=== PATIENT | female | born 1995 | race Caucasian/White ===

== ENCOUNTER 2021-09-18 22:47 | Emergency (ER) | payer MEDICAID, SELFPAY ==
[2021-09-18 22:48] VITALS: BP 147/86; PULSE 100; RESP 18; TEMP 36.4; O2SAT 94; BMI 31.4
[2021-09-18] MEDS: Clindamycin HCl 150 MG Capsule 300 MG PO (23:16)
[2021-09-18] MEDS: Ondansetron ODT 4 MG Tablet PO (23:16)
--- NOTE | 2021-09-18 23:16 | ED.VIS.FEGU ---
HPI HPI - Female History of Present Illness Chief Complaint: Female C/O Narrative Narrative: Patient is a 26-year-old female with past medical history of psoriasis Crohn's disease and hydronidus suppurativa. She states that she noticed a lesion in her right groin over the past 3 to 5 days. She states the lesion it continues to grow in size and is becoming more painful. She states that she is concerned she may need this incised and drained as this has been done in the past. She denies any fevers or chills but with the worsening pain and size of the skin lesion presents for evaluation. PFSH PFSH Home Medications clindamycin HCl [Cleocin HCl] 300 mg PO 4X/DAY 10 Days #40 cap 09/19/21 [Rx Last Taken Unknown] hydrocodone-acetaminophen 1 tab PO Q6H PRN 3 Days #12 tab 09/19/21 [Rx Last Taken Unknown] Allergy/AdvReac Type Severity Reaction Status Date / Time amoxicillin Allergy Rash Verified 09/18/21 22:50 Sulfa (Sulfonamide Allergy Rash Verified 09/18/21 22:50 Antibiotics) Social History Smoking Status: Current every day smoker tobacco type: cigarettes ROS ROS ED Constitutional Constitutional ED: Denies chills or fever(s) ENT ENT ED: Denies sore throat Cardiovascular Cardiovascular: Denies chest pain Respiratory/Chest Respiratory/Chest: Denies cough or dyspnea Gastrointestinal Gastrointestinal: Denies abdominal pain, diarrhea, nausea or vomiting Genitourinary Genitourinary ED: Denies dysuria Musculoskeletal Musculoskeletal: Denies myalgias Integumentary Reports abscess; Denies rash Neurologic Neurologic: Denies headache(s) Hematologic/Lymphatic Hematologic/Lymphatic: Denies easy bleeding or easy bruising EXAM Physical Exam Const Vital Signs: 09/18/21 22:48 Temperature 97.6 F L Temperature Source Temporal Pulse Rate 100 Respiratory Rate 18 Blood Pressure 147/86 H Blood Pressure Mean 106 Pulse Ox 94 Oxygen Delivery Method Room Air Positive well nourished and well developed General Appearance ED: well developed Eyes PERRL and EOMs intact bilaterally Neck supple Resp normal respiratory effort and clear to auscultation bilaterally Cardio regular rate and regular rhythm GI normal to inspection, nondistended, normoactive bowel sounds, soft to palpation, non-tender, non-distended and no masses Auscultation: normoactive bowel sounds Palpation: soft Narrative: In the right inguinal region there is a 1 x 2 cm area of erythema warmth and induration consistent with abscess formation. There is a small amount of purulent discharge drainage present. There is no lymphangitic streaking. No crepitance noted. No soft tissue changes to suggest Hilda's gangrene Extremity normal to inspection Neuro oriented x3 and CN's II-XII intact bilaterally Sensorium / Orientation: alert Psych mental status grossly normal Skin Skin Narrative: Soft tissue lesion consistent with abscess in the right inguinal region as documented above MDM MDM MDM Narrative Medical decision making narrative: Patient presented to the ER afebrile and without changes to suggest systemic infection. Therefore I felt no need for imaging or laboratory studies. The area was already draining but I felt it would need a larger hole to prevent spontaneous closure and therefore patient underwent I&D as documented below. Following this the patient will be placed on antibiotics and pain medication but as she has no signs of systemic infection is safe for discharge. Patient had the right inguinal region cleaned with chlorhexidine. The area of induration was anesthetized with 8 mL of 2% lidocaine with epinephrine local fashion. A #11 blade was used to make a 1 cm incision over top the area of induration and a moderate amount of purulent material was expressed. Loculations were dissected with a needle angela. The wound was copiously irrigated with normal saline and then half-inch iodoform gauze was placed. Patient tolerated procedure well without complication Discharge Plan Triage Chief Complaint: Female C/O ED Provider: Cleve Najera Dx/Rx/DC Orders Clinical Impression: Abscess of groin, right Instructions: ED Abscess Incision And Drainage Prescriptions: New hydrocodone-acetaminophen 5-325 mg tablet 1 tab PO Q6H PRN (Reason: pain) 3 Days Qty: 12 RF: 0 clindamycin HCl [Cleocin HCl] 300 mg capsule 300 mg PO 4X/DAY 10 Days Qty: 40 RF: 0 Primary Care Provider: Cornelius Dean Referrals: Cornelius Dean MD [Primary Care Provider] - Activity Restrictions/Additional Instructions: Please remove your packing in 48 to 72 hours and return to the ER should you have any further concerns Disposition Disposition: Home, Self Care
[2021-09-18] MEDS: morphine 10 MG/ML Syringe 8 MG IM (23:17)
[2021-09-19] MEDS: Lidocaine 2% /Epi 1:100 (50ml) 50 ML Vial 20 ML INFILT (00:02)
== END 2021-09-19 00:12 | disposition home or self-care (01) ==
PROVIDERS: Emergency Provider Emergency Medicine; PCP Internal Medicine; Visit Provider Emergency Medicine
DX: L02.214 Cutaneous abscess of groin (principal); F17.210 Nicotine dependence, cigarettes, uncomplicated
CPT/HCPCS: 10060; 99283

== ENCOUNTER 2021-10-16 07:55 | Emergency (ER) | payer MEDICAID, SELFPAY ==
[2021-10-16 07:56] VITALS: BP 138/77; PULSE 100; RESP 16; TEMP 36; O2SAT 97; BMI 30.9
--- NOTE | 2021-10-16 08:51 | EX.ED.VIS.UR ---
HPI HPI - URI History of Present Illness Chief Complaint: Shortness of Breath Informant: patient Onset/Context/Timing Onset: Weeks (1) Context: Gradual Onset Timing: Continuous Quality: Wheezing Location: Chest Worsened by: - (Nothing) Relieved by: - (Nothing) Associated Symptoms Associated Symptoms: Positive for Headache, Myalgias, Nausea, Vomiting, Shortness of Breath, Chest Pain and Nonproductive cough; Negative for Nasal Congestion and Diarrhea Narrative Narrative: Patient presents with a cough that has been getting worse over the past week. Patient states that her tested positive for COVID-19 yesterday. Patient states she feels like she is wheezing. Patient states this is getting worse. Patient states nothing makes her breathing worse and nothing makes it better. Patient denies any fevers or chills. Patient denies any rhinorrhea. Patient does admit to some chest pain and shortness of breath. Patient also admits to some nausea and vomiting. ROS [facility] ED Constitutional Constitutional ED: Denies chills or fever(s) Eyes Eyes: Denies blurry vision or change in vision ENT ENT ED: Denies rhinorrhea or sore throat Cardiovascular Cardiovascular: Reports chest pain; Denies palpitations Respiratory/Chest Respiratory/Chest: Reports cough and dyspnea Gastrointestinal Gastrointestinal: Reports nausea and vomiting Genitourinary Genitourinary ED: Denies dysuria or hematuria Musculoskeletal Musculoskeletal: Reports back pain; Denies neck pain Integumentary Denies abscess or rash Neurologic Neurologic: Reports headache(s); Denies weakness Allergic/Immunologic Allergic/Immunologic ED: Denies mouth swelling or urticaria [facility] Medical History (Updated 10/16/21 @ 10:[address] Hira Pool, DO) Crohn's disease Hidradenitis suppurativa Psoriasis Home Medications albuterol sulfate [ProAir HFA] 2 puff INHALATION Q4H PRN PRN 10/16/21 [History Last Taken Unknown] buspirone 10 mg PO TID 10/16/21 [History Last Taken Unknown] trazodone 50 mg PO QHS 10/16/21 [History Last Taken Unknown] venlafaxine 75 mg PO DAILY 10/16/21 [History Last Taken Unknown] Allergy/AdvReac Type Severity Reaction Status Date / Time amoxicillin Allergy Rash Verified 10/16/21 07:59 Sulfa (Sulfonamide Allergy Rash Verified 10/16/21 07:59 Antibiotics) Surgical History no surgical history no surgical history Social History Smoking Status: Current every day smoker tobacco type: cigarettes EXAM Physical Exam Const Vital Signs: 10/16/21 07:56 10/16/21 08:55 10/16/21 09:25 Temperature 96.8 F L Temperature Source Temporal Pulse Rate 100 Respiratory Rate 16 Respiratory Depth Normal Respiratory Pattern Blood Pressure 138/77 H Blood Pressure Mean 97 Pulse Ox 97 Oxygen Delivery Method Room Air Room Air 10/16/21 09:58 Temperature Temperature Source Pulse Rate 98 Respiratory Rate 15 Respiratory Depth Respiratory Pattern Normal Blood Pressure Blood Pressure Mean Pulse Ox Oxygen Delivery Method Positive well nourished and well developed General Appearance ED: well developed and NAD HEENT Reports moist mucous membranes Neck supple and no JVD Resp normal respiratory effort and clear to auscultation bilaterally Cardio regular rate, regular rhythm and no murmurs GI normal to inspection, nondistended, normoactive bowel sounds and non-tender Palpation: soft Extremity normal to inspection General Extremety ED: Negative for edema or tenderness General Extremity: Negative for edema Neuro oriented x3, CN's II-XII intact bilaterally and no sensory deficits noted Sensorium / Orientation: alert Motor Exam: strength 5/5 throughout Psych mental status grossly normal Skin no rashes or lesions noted MDM MDM MDM Narrative Medical decision making narrative: Patient was given a DuoNeb aerosol here. COVID-19 rapid antigen was obtained was negative. Influenza A and influenza B swabs were obtained were negative. Patient was advised of her findings. Patient was instructed to drink plenty of fluids. Patient was instructed to take Tylenol or ibuprofen as needed for any aches or fevers. Patient was instructed to follow-up with her primary care physician in 5 to 7 days. Patient understood and was agreeable with the plan. All questions were answered. Discharge Plan Triage Chief Complaint: Shortness of Breath ED Provider: Hira Pool Dx/Rx/DC Orders Clinical Impression: Viral upper respiratory tract infection, Cough Instructions: ED URI, Viral, No Abx (Adult) Prescriptions: No Action venlafaxine 75 mg capsule,extended release 24hr 75 mg PO DAILY RF: 0 trazodone 50 mg tablet 50 mg PO QHS RF: 0 buspirone 10 mg tablet 10 mg PO TID RF: 0 albuterol sulfate [ProAir HFA] 90 mcg/actuation HFA aerosol inhaler 2 puff INHALATION Q4H PRN PRN (Reason: SOB) RF: 0 Stand Alone Forms: ED Work / School Excuse Primary Care Provider: Cornelius Dean Referrals: Cornelius Dean MD [Primary Care Provider] - 5-7 Days Disposition Disposition: Home, Self Care
[2021-10-16] MEDS: Ipratropium/Albuterol Sulfate 3 ML AMPUL.NEB INHALATION (09:57)
[2021-10-16 09:58] VITALS: PULSE 98; RESP 15
== END 2021-10-16 10:40 | disposition home or self-care (01) ==
PROVIDERS: Emergency Provider Emergency Medicine; PCP Internal Medicine; Visit Provider Emergency Medicine
DX: J06.9 Acute upper respiratory infection, unspecified (principal); R05.9 Cough, unspecified; R06.02 Shortness of breath; M79.10 Myalgia, unspecified site; R51.9 Headache, unspecified; R11.2 Nausea with vomiting, unspecified; F17.210 Nicotine dependence, cigarettes, uncomplicated; Z79.899 Other long term (current) drug therapy; Z20.822 Contact with and (suspected) exposure to COVID-19
CPT/HCPCS: 87428; 94640; 99282

== ENCOUNTER 2022-07-31 08:49 | Emergency (ER) | payer MEDICAID, SELFPAY ==
[2022-07-31 08:49] VITALS: BP 135/75; PULSE 90; RESP 18; TEMP 36.4; O2SAT 100; BMI 30.9
--- NOTE | 2022-07-31 09:14 | ED.VIS.BACK ---
HPI History of Present Illness Chief Complaint: Back Detail of Chief Complaint: Mid clifton-thoracic back pain Informant: patient Onset/Context/Timing Onset: Weeks Context: Gradual Onset Timing: Continuous Quality: Dull and Aching Location: Thoracic Current Severity: Mild Maximum Severity: Mild Worsened by: improves with Movement Relieved by: Nothing Associated Symptoms Associated Symptoms: Negative for Numbness, Tingling, Radiation to Right Leg, Radiation to Left Leg, Fever, Abdominal Pain, Dysuria, Unable to Ambulate, Unable to Transfer, Urinary Retention, Urinary Incontinence, Constipation or Fecal Incontinence Narrative Narrative: 19-year-old female history of Crohn's disease and psoriasis. No known back history or prior back surgeries. She states for 2 weeks she has had mid parathoracic back discomfort. She describes as a dull aching. Worse with movement. She denies any fever nor chills. No dysuria. She does not know anything that specifically caused it. She has had no fall or trauma. She is done no excessive lifting or carrying things. She denies any shortness of breath or chest pain. Prior similar symptoms: No Recent Illness/Hospitalization: No [facility] Medical History Crohn's disease Hidradenitis suppurativa Psoriasis Home Medications albuterol sulfate 90 mcg/actuation aerosol inhaler (ProAir HFA) 2 puff inhalation Q4H PRN PRN SOB 10/16/21 [History Last Taken Unknown] buspirone 10 mg tablet 10 mg PO TID 10/16/21 [History Last Taken Unknown] trazodone 50 mg tablet 50 mg PO QHS 10/16/21 [History Last Taken Unknown] venlafaxine 75 mg capsule,extended release 24 hr 75 mg PO DAILY 10/16/21 [History Last Taken Unknown] metaxalone 800 mg tablet 800 mg PO TID Back pain 7 days #21 tabs 07/31/22 [Rx Last Taken Unknown] Allergy/AdvReac Type Severity Reaction Status Date / Time amoxicillin Allergy Rash Verified 07/31/22 08:49 Sulfa (Sulfonamide Allergy Rash Verified 07/31/22 08:49 Antibiotics) Social History Smoking Status: Current every day smoker tobacco type: cigarettes ROS ROS ED ROS Narrative Denies. Back pain. Review of Systems ROS Unobtainable: Denies due to encephalopathy Constitutional Constitutional ED: Denies chills or fever(s) Eyes Eyes: Denies blurry vision ENT ENT ED: Denies ear pain Cardiovascular Cardiovascular: Denies chest pain Respiratory/Chest Respiratory/Chest: Denies dyspnea Gastrointestinal Gastrointestinal: Denies abdominal pain Genitourinary Genitourinary ED: Denies dysuria or hematuria Musculoskeletal Musculoskeletal: Reports back pain; Denies arthralgias, myalgias or neck pain Integumentary Denies abscess or Abrasions Neurologic Neurologic: Denies headache(s) Psychiatric Psychiatric: Denies anxiety Endocrine Endocrinology: Denies cold intolerance Hematologic/Lymphatic Hematologic/Lymphatic: Denies easy bleeding Allergic/Immunologic Allergic/Immunologic ED: Denies mouth swelling or tongue swelling EXAM Physical Exam Narrative Exam Narrative: 19-year-old female no acute distress. Vital signs stable afebrile. Sitting upright in bed. H EENT exam unremarkable. Neck nontender no lymphadenopathy. Trachea midline. Lungs clear to auscultation bilaterally. Heart regular rhythm rate about 90 no murmur. Chest wall nontender. Abdomen soft nontender. Nondistended. No peritoneal signs. Moving all 4 extremities. 5/5 field clerk strength. Dorsi plantarflexion intact. Normal sensation. Normal motor strength and range of motion. Back really no significant tenderness. The spine is nontender. There is no ecchymosis or bruising. No signs of trauma. No redness or warmth. She describes the discomfort as parathoracic. Worse with movement. Neurologic exam is normal. Const Vital Signs: 07/31/22 08:49 Temperature 97.6 F L Temperature Source Temporal Pulse Rate 90 Respiratory Rate 18 Blood Pressure 135/75 H Blood Pressure Mean 95 Pulse Ox 100 Oxygen Delivery Method Room Air Positive well nourished, well developed and obese; Negative for cachectic, contractures or unkempt General Appearance ED: well developed and NAD; Negative for unkempt, cachectic, contractures or pallor Nutritional Appearance: obese; Negative for cachectic HEENT Reports moist mucous membranes; Denies dry mucous membranes Negative for trauma or tenderness Mouth ED: No dry mucous membranes Mouth: No dry mucous membranes Eyes PERRL and EOMs intact bilaterally General Eye ED: Negative for pale conjunctiva or scleral icterus Neck no lymphadenopathy, supple and no JVD General: Negative for tenderness Thyroid: Negative for other Resp normal respiratory effort and clear to auscultation bilaterally Effort and Inspection: Negative for pain with movement Auscultation: Negative for rales, rhonchi or wheezes Cardio regular rate, regular rhythm, S1 normal heart sound, S2 normal heart sound and no murmurs Palpation: Negative for palpable S3 Rate: Negative for bradycardia Rhythm: Negative for abnormal rhythm Bruits: Negative for other GI normal to inspection, nondistended, normoactive bowel sounds, soft to palpation, non-tender, non-distended and no masses Inspection: Negative for abdominal distention Auscultation: Negative for hyperactive bowel sounds Palpation: Negative for tender or guarding Back/Spine normal to inspection and no thoracic nor lumbar tenderness General Back: Negative for CVA tenderness Cervical Spine: Negative for cervical spine tenderness Thoracic Spine / Upper Back: paraspinal muscle tenderness Lumbar Spine / Lower Back: straight leg raise negative bilaterally; Negative for ROM limited Extremity normal to inspection and no clubbing, cyanosis or edema General Extremety ED: Negative for edema or tenderness General Extremity: Negative for edema Neuro oriented x3 and no sensory deficits noted Sensorium / Orientation: alert; Negative for confused, lethargic or stuporous Motor Exam: strength 5/5 throughout Psych mental status grossly normal Appearance: Negative for unkempt Attitude: No agitated and No other Mood & Affect: Negative for depressed or sad Skin no rashes or lesions noted and no wounds General Skin Exam: Negative for jaundice or pallor Lesions: No lesion noted Rashes: No rashes noted Trauma: Negative for abrasion Wounds: Negative for wounds noted MDM MDM MDM Narrative Medical decision making narrative: 27-year-old female complaint of atraumatic mid parathoracic back pain. No fevers. Appears to be musculoskeletal. She has a normal neurologic exam normal motor strength and sensation. She has had no trauma. There is no need for x-rays at this time. She will be started on Skelaxin. Use ibuprofen. Hot shower, warm bath and massage. Follow-up with a primary care physician if not improving. Discharge Plan Triage Chief Complaint: Back ED Provider: Alessio Bird Dx/Rx/DC Orders Clinical Impression: Musculoskeletal back pain Instructions: ED Back and Neck Pain, General Prescriptions: New metaxalone 800 mg tablet 800 mg PO TID 7 Days Qty: 21 0RF No Action venlafaxine 75 mg capsule,extended release 24hr 75 mg PO DAILY trazodone 50 mg tablet 50 mg PO QHS buspirone 10 mg tablet 10 mg PO TID albuterol sulfate [ProAir HFA] 90 mcg/actuation HFA aerosol inhaler 2 puff INHALATION Q4H PRN PRN (Reason: SOB) Primary Care Provider: Cornelius Dean Referrals: Cornelius Dean MD [Primary Care Provider] - 1 Week if not improving Activity Restrictions/Additional Instructions: Skelaxin 1 pill 3 times a day. Motrin 400 to 600 mg 3 times a day. Tylenol as needed. Hot shower, warm bath and massage. Follow-up with your doctor if not improving. Disposition Disposition: Home, Self Care
== END 2022-07-31 09:26 | disposition home or self-care (01) ==
PROVIDERS: Emergency Provider Emergency Medicine; PCP Internal Medicine; Visit Provider Emergency Medicine
DX: M54.6 Pain in thoracic spine (principal); F17.210 Nicotine dependence, cigarettes, uncomplicated; E66.9 Obesity, unspecified
CPT/HCPCS: 99282

== ENCOUNTER 2023-02-21 13:31 | Inpatient (IN) | payer OTHER, SELFPAY ==
[2023-02-21] VITALS (9 sets, daily range): BP systolic 114–149; BP diastolic 54–88; PULSE 61–84; RESP 16–18; TEMP 36.6–36.9; O2SAT 97–100; BMI 30.9; BMI 30.3
--- NOTE | 2023-02-21 13:55 | CT_ITS ---
HISTORY: Mid upper abdominal pain, history of Crohn''s disease, off meds x 3 months, no prior surgery. TECHNIQUE: Helically acquired images were obtained of the abdomen and pelvis after the intravenous administration of 100mL Isovue-370. A radiation dose optimization technique was used for this scan. 411 images. COMPARISON: None. FINDINGS: LOWER CHEST: Lung bases clear. BOWEL: 3.5 cm mildly dilated fluid-filled and fecalized distal ileum with mild thickening of the terminal ileal wall. Remainder of small bowel and appendix nondilated. No focal pericolonic inflammatory change observed. PERITONEUM: Trace mesenteric edema and free fluid adjacent to the dilated small bowel. Several small right lower quadrant mesenteric lymph nodes, likely reactive. LIVER: No enhancing mass. GALLBLADDER/BILIARY TREE: Gallbladder present. SPLEEN/PANCREAS: Homogeneous and nonenlarged. KIDNEYS/ADRENAL GLANDS: No nodules. VESSELS: No abdominal aortic aneurysm. PELVIC ORGANS: 3.8 cm mildly hyperdense right adnexal cyst. BONES: Intact. CT/Abdomen/Pelvis W IV Cont ONLY IMPRESSION: Dilated distal ileum with wall thickening of the terminal ileum and trace mesenteric edema, concerning for acute terminal ileitis with partial small bowel obstruction. Unremarkable appendix. 3.8 cm hemorrhagic right ovarian cyst. Electronically Signed: Noemi Luna MD at 15:26 EDT ,
--- NOTE | 2023-02-21 13:56 | ED.VIS.GI ---
HPI HPI - GI History of Present Illness Chief Complaint: Abd Pain Detail of Chief Complaint: Abdominal pain Informant: patient Abdominal Pain/Flank Pain Current Severity: 02/11 Narrative Narrative: Patient presents emergency department complaint of abdominal pain that she said for about a week. Patient has history of Crohn's. Patient supposed to be on Stelara however she states that she had a lapse of insurance and has been off for about 3 months. Patient has had nausea and vomiting. Patient states she could not keep her lunch down today and she threw up. Denies diarrhea today but has had some diarrhea off and on. She denies any blood in her stool. She denies fever. She denies dysuria or urgency or frequency. She does not think she is . [facility] Medical History Crohn's disease Hidradenitis suppurativa Psoriasis Home Medications albuterol sulfate 90 mcg/actuation aerosol inhaler (ProAir HFA) 2 puff inhalation Q4H PRN PRN SOB 10/16/21 [History Last Taken Unknown] buspirone 10 mg tablet 10 mg PO TID 10/16/21 [History Last Taken Unknown] trazodone 50 mg tablet 50 mg PO QHS 10/16/21 [History Last Taken Unknown] venlafaxine 75 mg capsule,extended release 24 hr 75 mg PO DAILY 10/16/21 [History Last Taken Unknown] metaxalone 800 mg tablet 800 mg PO TID Back pain 7 days #21 tabs 07/31/22 [Rx Last Taken Unknown] Allergy/AdvReac Type Severity Reaction Status Date / Time amoxicillin Allergy Rash Verified 02/21/23 13:32 Sulfa (Sulfonamide Allergy Rash Verified 02/21/23 13:32 Antibiotics) Social History Smoking Status: Current every day smoker tobacco type: cigarettes ROS ROS ED Review of Systems ROS Unobtainable: other Constitutional Constitutional ED: Reports lethargy; Denies chills, fever(s), sweats or weight loss Eyes Eyes: Denies blurry vision, change in vision or diplopia ENT ENT ED: Denies rhinorrhea or sore throat Cardiovascular Cardiovascular: Denies chest pain, orthopnea or racing heartbeat Respiratory/Chest Respiratory/Chest: Denies cough, dyspnea, dyspnea on exertion, orthopnea or sputum Gastrointestinal Gastrointestinal: Reports abdominal pain, nausea and vomiting; Denies diarrhea Genitourinary Genitourinary ED: Denies dysuria, hematuria or urinary frequency Musculoskeletal Musculoskeletal: Denies arthralgias, back pain, myalgias or neck pain Integumentary Denies abscess, Abrasions or rash Neurologic Neurologic: Denies headache(s) or weakness Psychiatric Psychiatric: Denies anxiety, depression or suicidal thoughts Endocrine Endocrinology: Denies polydipsia, polyphagia or polyuria Hematologic/Lymphatic Hematologic/Lymphatic: Denies easy bleeding, easy bruising or lymphadenopathy Allergic/Immunologic Allergic/Immunologic ED: Denies mouth swelling, tongue swelling or urticaria EXAM Physical Exam Const Vital Signs: 02/21/23 13:32 02/21/23 15:56 Temperature 97.9 F Temperature Source Temporal Pulse Rate 84 83 Respiratory Rate 16 18 Blood Pressure 123/65 H 135/72 H Blood Pressure Mean 84 93 Pulse Ox 100 100 Oxygen Delivery Method Room Air Positive well nourished and well developed General Appearance ED: well developed and NAD HEENT Reports TM's clear and moist mucous membranes normocephalic and atraumatic; Negative for trauma or tenderness Tympanic Membrane ED: Yes TM's clear Eyes PERRL and EOMs intact bilaterally General Eye ED: Negative for pale conjunctiva or scleral icterus Neck no lymphadenopathy, supple and no JVD General: Negative for tenderness Chest Wall inspection of chest normal and palpation of chest normal Chest: Negative for tenderness Resp normal respiratory effort and clear to auscultation bilaterally Effort and Inspection: Negative for respiratory distress or pain with movement Auscultation: Negative for rhonchi, wheezes or diminished lung sounds Cardio regular rate, regular rhythm, S1 normal heart sound, S2 normal heart sound and no murmurs Peripheral Pulses: pulses 2+ throughout GI normal to inspection, nondistended, normoactive bowel sounds, soft to palpation, non-distended and no masses GI Narrative: Normal active bowel sounds. Patient has tenderness diffusely over the epigastric and left upper quadrants. Mild tenderness over the right upper quadrant. Negative Howard sign. There is no rebound, rigidity, or peritoneal signs. No masses palpated. Back/Spine no CVA tenderness and no thoracic nor lumbar tenderness Extremity normal to inspection General Extremety ED: Negative for edema General Extremity: Negative for edema Neuro oriented x3, CN's II-XII intact bilaterally, no sensory deficits noted and gait normal Sensorium / Orientation: awake, alert, oriented to person, oriented to place and oriented to time Motor Exam: strength 5/5 throughout and strength abnormal Psych mental status grossly normal Skin no rashes or lesions noted and no wounds MDM MDM MDM Narrative Medical decision making narrative: Patient presents with abdominal pain with history of Crohn's off her Stelara. IV line established. Patient had a CBC with differential obtained showed a white count of 12 with hemoglobin of 11.8 and platelet count of 308. Chemistries unremarkable. LFTs were normal. Lactate was normal at 0.8. Lites normal. Your is normal. I did obtain a CT scan of the abdomen pelvis that showed terminal ileitis with partial small bowel obstruction. Case discussed with hospitalist who will evaluate patient for admission. Also discussed case with cleaner window on-call Dr. Felder who recommended Solu-Medrol 20 mg every 6 hours as well as Cipro and Flagyl IV. Lab Data Labs: Laboratory Results - last 24 hr 02/21/23 02/21/23 14:05 14:20 WBC 12.0 H RBC 3.95 L Hgb 11.8 L Hct 36.1 L MCV 91.4 MCH 29.9 MCHC 32.7 RDW Std Deviation 43.4 RDW Coeff of [place] 13.0 Plt Count 308 MPV 9.6 Immature Gran % (Auto) 0.200 Neut % (Auto) 66.4 Lymph % (Auto) 19.5 [place] % (Auto) 8.8 Eos % (Auto) 4.8 Baso % (Auto) 0.3 Absolute Neuts (auto) 8.0 H Absolute Lymphs (auto) 2.34 Nucleated RBC % 0 ESR 6 Sodium 137 Potassium 3.8 Chloride 106 Carbon Dioxide 27.0 Anion Gap 4 L BUN 14 Creatinine 0.78 Estim Creat Clear Calc 91.90 Est GFR (MDRD) Af Amer 113 Est GFR (MDRD) Non-Af 93 BUN/Creatinine Ratio 18.0 Glucose 103 Lactic Acid 0.8 Calcium 8.5 Total Bilirubin 0.20 AST 13 L ALT 29 Alkaline Phosphatase 46 Total Protein 7.3 Albumin 3.7 Globulin 3.6 Albumin/Globulin Ratio 1.0 Lipase 32 Serum , Qual NEGATIVE Urine Color Yellow Urine Clarity Sl. Cloudy Urine pH 7.0 Ur Specific [place] 1.010 Urine Protein Negative Urine Glucose (UA) Normal Urine Ketones Negative Urine Occult Blood Negative Urine Nitrite Negative Urine Bilirubin Negative Urine Urobilinogen Normal Ur Leukocyte Esterase Negative Urine RBC 0 SEEN Urine WBC 0 SEEN Ur Squamous Epith Cells 5-10 SEEN Amorphous Sediment 1+ Urine Bacteria 0 SEEN Urine Mucus 0 SEEN Radiography Diagnostic Testing: Clinical Impression(s) from Imaging Studies Abdomen/Pelvis CT 02/21/23 13:55 IMPRESSION: Dilated distal ileum with wall thickening of the terminal ileum and trace mesenteric edema, concerning for acute terminal ileitis with partial small bowel obstruction. Unremarkable appendix. 3.8 cm hemorrhagic right ovarian cyst. Electronically Signed: Noemi Luna MD at 15:26 EDT , Discharge Plan Dx/Rx/DC Orders Clinical Impression: Ileitis, Abdominal pain, Partial small bowel obstruction, History of Crohn's disease Disposition Disposition: Acute Care Hospital [facility]
[2023-02-21] MEDS: Morphine 4 MG/ML Syringe IV ×2 (14:03→20:08)
[2023-02-21] MEDS: 0.9% Normal Saline 1,000 ML 1000 ML IV (14:03)
[2023-02-21] MEDS: Ondansetron 4 MG/2 ML Vial IV (14:03)
[2023-02-21 14:17] LABS: Erythrocyte Sedimentation Rate 6 mm/hr (0-30)
[2023-02-21 14:19] LABS: Absolute Lymphocyte Count 2.34 X10^3/uL (0.83-4.51); Basophil# 0.04 X10^3/uL; Basophil% 0.3 % (0-1); Eosinophil# 0.58 X10^3/uL; Eosinophils% 4.8 % (0-5); Hematocrit 36.1 % (37-47); Hemoglobin 11.8 g/dL (12.0-15.0); Lymphocyte # 2.34 X10^3/ul (0.83-4.51); Lymphocyte % 19.5 % (19-41); Mean Corp Hgb Conc 32.7 g/dL (32-36); Mean Corpuscular Hgb 29.9 pg (27.0-32.0); Mean Corpuscular Volume 91.4 fL (81-99); Mean Platelet Vol. 9.6 fl (6.2-12.0); Monocyte# 1.06 X10^3/uL; Monocyte% 8.8 % (0-10); NRBC Flagged by Analyzer 0 % (0-5); Neutrophil # 7.98 X10^3/uL (2.7-7.7); Neutrophil % 66.4 % (47-70); Platelet Count 308 K/mm3 (150-450); RBC Distribution Width SD 43.4 fl (35.1-43.9); Red Blood Count 3.95 M/mm3 (4.2-5.4)
[2023-02-21 14:22] LABS: Internal QC Validated? YES +Cl - CLEAR BKGD; Pregnancy, Serum, hCG Quali. NEGATIVE Negative
[2023-02-21 14:24] LABS: Bacteria 0 SEEN /hpf (None Seen); Mucous, Urine 0 SEEN /hpf (<or=2+); Red Blood Cells-Urine 0 SEEN /hpf (0-5); White Blood Cells 0 SEEN /hpf (0-5)
[2023-02-21 14:25] LABS: Color, Urine Yellow (Yellow); Glucose, Dipstick Normal (Normal); Ketone-Dipstick Negative (Negative); Leukocyte Esterase-Dipstick Negative /ul (Negative); Nitrite-Dipstick Negative (Negative); Occult Blood-Urine Negative /ul (Negative); Protein-Dipstick Negative (Negative); Urine Bilirubin Dipstick Negative (Negative); Urine Clarity Sl. Cloudy (Clear); Urine Urobilinogen Normal (Normal)
[2023-02-21 14:30] LABS: AST(SGOT) 13 U/L (15-37); Alanine Aminotransfer ALT/SGPT 29 U/L (13-56); Albumin, Serum 3.7 g/dL (3.2-5.0); Alkaline Phosphatase 46 U/L (45-117); Anion Gap 4 (5-15); BUN 14 mg/dL (7-18); Calcium,Total 8.5 mg/dL (8.5-10.1); Chloride 106 mmol/L (98-107); Creatinine, Serum 0.78 mg/dL (0.55-1.02); EST Glomerular Filtration Rate 93 mL/min (>60); Est Glom Filt Rate - Afr Amer 113 mL/min (>60); Globulin 3.6 g/dL (2.2-4.2); Glucose 103 mg/dL (74-106); Lipase 32 U/L (13-75); Potassium 3.8 mmol/L (3.5-5.1); Protein, Total 7.3 g/dL (6.4-8.2); Sodium Level 137 mmol/L (136-145)
[2023-02-21 14:34] LABS: Amorphous Sediment 1+; Squamous Epithelial Cells - UA 5-10 SEEN /hpf (5-10)
[2023-02-21 15:28] LABS: Lactic Acid 0.8 mmol/L (0.4-1.9)
--- NOTE | 2023-02-21 15:53 | HP.PCM_ITS ---
HPI - General General Date of Admission: 02/21/23 Date of Service: 02/21/23 Chief Complaint: abdominal pain HPI Narrative GARETH MCGILL, is a 28 F with a PMH as outlined who presents via the ED on 02/21/2023 with a complaint of abdominal pain. Pain had been going on for about one week. SHe has a history of Crohn's disease, and says she was supposed to be on Stelara, but had defaulted for about 3 months due to lapse in insurance coverage. SHe had associated nausea and vomiting, and had been unable to keep her food down on day of admission. She had been getting episodic diarrhea but denied any blood in her stool. She denied any fever, and denied any urinary symptoms. Review of systems was otherwise negative. Vitals in the ED were BP of 123/65, LA of 84 and RR of 16 as well as temp of 97.9F. She was saturating at 100% on room air. CBC showed Hb of 11.8 and wbc of 12 and platelets of 308. Chemistry was unremarkable and urine test was negative. CT of the abdomen and pelvis showed dilated distal ileum with wall thickening of the terminal ileum and trace mesenteric edema, concerning for acute terminal ileitis with partial small bowel obstruction, unremarkable appendix and 3.8cm hemorrhagic right ovarian cyst. She is being managed for acute Crohn's flare up with terminal ileitis. [facility] Medical History Crohn's disease Hidradenitis suppurativa Psoriasis Home Medications albuterol sulfate 90 mcg/actuation aerosol inhaler (ProAir HFA) 2 puff inhalation Q4H PRN PRN SOB 10/16/21 [History Last Taken Unknown] buspirone 10 mg tablet 10 mg PO TID 10/16/21 [History Last Taken Unknown] trazodone 50 mg tablet 50 mg PO QHS 10/16/21 [History Last Taken Unknown] venlafaxine 75 mg capsule,extended release 24 hr 75 mg PO DAILY 10/16/21 [History Last Taken Unknown] metaxalone 800 mg tablet 800 mg PO TID Back pain 7 days #21 tabs 07/31/22 [Rx Last Taken Unknown] Allergy/AdvReac Type Severity Reaction Status Date / Time amoxicillin Allergy Rash Verified 02/21/23 13:32 Sulfa (Sulfonamide Allergy Rash Verified 02/21/23 13:32 Antibiotics) Social History Smoking Status: Current every day smoker tobacco type: cigarettes ROS Review of Systems ROS Unobtainable: Denies due to encephalopathy Constitutional Constitutional: Reports anorexia, fatigue, malaise and weakness; Denies change in weight, chills or fever(s) Eyes Eyes: Denies change in vision ENT HEENT: Denies dysphagia, headache(s) or sore throat Cardiovascular Cardiovascular: Denies chest pain, edema, orthopnea, palpitations, paroxysmal nocturnal dyspnea or syncope Respiratory/Chest Respiratory/Chest: Denies cough, shortness of breath at rest or shortness of breath with exertion Gastrointestinal Gastrointestinal: Reports abdominal pain, diarrhea, nausea and vomiting; Denies constipation, dyspepsia, hematemesis, hematochezia or melena Genitourinary Genitourinary: Denies dysuria, nocturia or urinary frequency Musculoskeletal Musculoskeletal: Denies back pain, joint pain, joint swelling, muscle weakness or neck pain Integumentary Integumentary: Denies dry skin Neurologic Neurologic: Denies confusion, dizziness, focal weakness, headache(s) or numbness Psychiatric Psychiatric: Denies anxiety Endocrine Endocrinology: Denies change in body appearance Vital Signs Vital Signs Vital Signs: 02/21/23 13:32 Temperature 97.9 F Temperature Source Temporal Pulse Rate 84 Respiratory Rate 16 Blood Pressure 123/65 H Blood Pressure Mean 84 Pulse Ox 100 Weight Weight: 179 lb 14.4 oz Body Mass Index (BMI) 30.9 Physical Exam Const alert, oriented x3 and no apparent distress General Appearance: cooperative HEENT normocephalic, head/scalp atraumatic and moist oral mucous membranes Eyes PERRL and EOMs intact bilaterally Neck no lymphadenopathy and supple Lymph Lymphatic: no lymphadenopathy noted and no lymphedema noted Resp normal respiratory effort, normal air movement and clear to auscultation bilaterally Cardio regular rate, regular rhythm, S1 normal heart sound, S2 normal heart sound and no murmurs Palpation: normal PMI GI normal to inspection, nondistended, normoactive bowel sounds and soft to palpation GI Narrative: moderate generalised tenderness, no guarding or rebound tenderness Extremity normal capillary refill, no clubbing, cyanosis or edema and no calf tenderness Skin General Skin Exam: no breakdown and turgor normal Neuro CN's II-XII intact bilaterally, no focal motor deficits, no sensory deficits noted and deep tendon reflexes 2+ bilaterally Coordination / Balance: [id number] test normal Psych thought process normal, cooperative and affect normal Appearance: appropriate Results Lab / Micro Data 02/21/23 14:05 02/21/23 14:05 Labs: Laboratory Results - last 24 hr 02/21/23 14:05: WBC 12.0 H, RBC 3.95 L, Hgb 11.8 L, Hct 36.1 L, MCV 91.4, MCH 29.9, MCHC 32.7, RDW Std Deviation 43.4, RDW Coeff of Candido 13.0, Plt Count 308, MPV 9.6, Immature Gran % (Auto) 0.200, Neut % (Auto) 66.4, Lymph % (Auto) 19.5, [place] % (Auto) 8.8, Eos % (Auto) 4.8, Baso % (Auto) 0.3, Absolute Neuts (auto) 8.0 H, Absolute Lymphs (auto) 2.34, Nucleated RBC % 0, ESR 6, Sodium 137, Potassium 3.8, Chloride 106, Carbon Dioxide 27.0, Anion Gap 4 L, BUN 14, Creatinine 0.78, Estim Creat Clear Calc 91.90, Est GFR (MDRD) Af Amer 113, Est GFR (MDRD) Non-Af 93, BUN/Creatinine Ratio 18.0, Glucose 103, Lactic Acid 0.8, Calcium 8.5, Total Bilirubin 0.20, AST 13 L, ALT 29, Alkaline Phosphatase 46, Total Protein 7.3, Albumin 3.7, Globulin 3.6, Albumin/Globulin Ratio 1.0, Lipase 32, Serum , Qual NEGATIVE 02/21/23 14:20: Urine Color Yellow, Urine Clarity Sl. Cloudy, Urine pH 7.0, Ur Specific [place] 1.010, Urine Protein Negative, Urine Glucose (UA) Normal, Urine Ketones Negative, Urine Occult Blood Negative, Urine Nitrite Negative, Urine Bilirubin Negative, Urine Urobilinogen Normal, Ur Leukocyte Esterase Negative, Urine RBC 0 SEEN, Urine WBC 0 SEEN, Ur Squamous Epith Cells 5-10 SEEN, Amorphous Sediment 1+, Urine Bacteria 0 SEEN, Urine Mucus 0 SEEN Radiology Impression Abdomen/Pelvis CT 02/21/23 13:55 IMPRESSION: Dilated distal ileum with wall thickening of the terminal ileum and trace mesenteric edema, concerning for acute terminal ileitis with partial small bowel obstruction. Unremarkable appendix. 3.8 cm hemorrhagic right ovarian cyst. Electronically Signed: Noemi Luna MD at 15:26 EDT , Assessment & Plan Assessment/Plan (1) Partial small bowel obstruction: (2) Ileitis: (3) Crohn's disease involving terminal ileum: PLAN: Plan #Acute Crohn's flareup with terminal ileitis and partial small bowel obstruction * admit to med surg * has been off her meds for ~ 3 months due to insurance lapse * CT abdomen and pelvis showed dilated distal ileum with wall thickeining of the terminal ileum and trace mesenteric edema, concerning for acute terminal ileitis with partial SBO * keep NPO * hydrate with IVF * per GI, start on IV solumedrol 40mg q6 * start on IV ciprofloxacin and metronidazole * consult GI * IV pain meds * * #Depression: on trazodone and venlafaxine as well as buspirone DVT prophylaxis: lovenox Charges/Coding Visit Charges Inpatient E&M: 14718 Init Hosp L3
--- NOTE | 2023-02-21 16:34 | EX.PCM.CON.G ---
HPI Consult Data Date of Consult: 02/21/23 HPI Narrative Reason for Consultation: Crohn's HPI Narrative: GARETH MCGILL, is a 28 F who presents with abdominal pain. She was diagnosed with Crohn's disease back in 2017. She was diagnosed with Crohn's disease of the small bowel. She was on Humira but developed a resistance as per the patient. She was tried on Remicade but developed psoriasis. She has been on Stelara for the last 3 years. She did miss 1 dose of Stelara and now was approximately 4 weeks ago. She gets Stelara every 8 weeks. She typically has 2-3 bowel movements a day and is being becoming more more constipated and more bloated. She complains of right lower quadrant abdominal pain with nausea and no vomiting. CT scan of the abdomen pelvis displayed dilated distal ileum with wall thickening of the terminal ileum and trace mesenteric edema, concerning for acute terminal ileitis with partial small bowel obstruction. Unremarkable appendix. 3.8 cm hemorrhagic right ovarian cyst. [facility] Medical History Crohn's disease Hidradenitis suppurativa Psoriasis Home Medications buspirone 10 mg tablet 10 mg PO TID 10/16/21 [History Last Taken 02/21/23] Allergy/AdvReac Type Severity Reaction Status Date / Time amoxicillin Allergy Rash Verified 02/21/23 13:32 Sulfa (Sulfonamide Allergy Rash Verified 02/21/23 13:32 Antibiotics) Social History Smoking Status: Current every day smoker tobacco type: cigarettes ROS Review of Systems ROS Unobtainable: Denies due to encephalopathy Constitutional Constitutional: Reports anorexia, fatigue, malaise and weakness; Denies change in weight, chills or fever(s) Eyes Eyes: Denies change in vision ENT HEENT: Denies dysphagia, headache(s) or sore throat Cardiovascular Cardiovascular: Denies chest pain, edema, orthopnea, palpitations, paroxysmal nocturnal dyspnea or syncope Respiratory/Chest Respiratory/Chest: Denies cough, shortness of breath at rest or shortness of breath with exertion Gastrointestinal Gastrointestinal: Reports abdominal pain, diarrhea, nausea and vomiting; Denies constipation, dyspepsia, hematemesis, hematochezia or melena Genitourinary Genitourinary: Denies dysuria, nocturia or urinary frequency Musculoskeletal Musculoskeletal: Denies back pain, joint pain, joint swelling, muscle weakness or neck pain Integumentary Integumentary: Denies dry skin Neurologic Neurologic: Denies confusion, dizziness, focal weakness, headache(s) or numbness Psychiatric Psychiatric: Denies anxiety Endocrine Endocrinology: Denies change in body appearance Physical Exam Const alert, oriented x3 and no apparent distress General Appearance: cooperative HEENT normocephalic, head/scalp atraumatic and moist oral mucous membranes Eyes PERRL and EOMs intact bilaterally Neck no lymphadenopathy and supple Lymph Lymphatic: no lymphadenopathy noted and no lymphedema noted Resp normal respiratory effort, normal air movement and clear to auscultation bilaterally Cardio regular rate, regular rhythm, S1 normal heart sound, S2 normal heart sound and no murmurs Palpation: normal PMI GI normal to inspection, nondistended, normoactive bowel sounds and soft to palpation GI Narrative: moderate generalised tenderness, no guarding or rebound tenderness Extremity normal capillary refill, no clubbing, cyanosis or edema and no calf tenderness Skin General Skin Exam: no breakdown and turgor normal Neuro CN's II-XII intact bilaterally, no focal motor deficits, no sensory deficits noted and deep tendon reflexes 2+ bilaterally Coordination / Balance: [id number] test normal Psych thought process normal, cooperative and affect normal Appearance: appropriate Lab / Micro Data 02/21/23 14:05 02/21/23 14:05 Labs: Laboratory Results - last 24 hr 02/21/23 14:05: WBC 12.0 H, RBC 3.95 L, Hgb 11.8 L, Hct 36.1 L, MCV 91.4, MCH 29.9, MCHC 32.7, RDW Std Deviation 43.4, RDW Coeff of Candido 13.0, Plt Count 308, MPV 9.6, Immature Gran % (Auto) 0.200, Neut % (Auto) 66.4, Lymph % (Auto) 19.5, [place] % (Auto) 8.8, Eos % (Auto) 4.8, Baso % (Auto) 0.3, Absolute Neuts (auto) 8.0 H, Absolute Lymphs (auto) 2.34, Nucleated RBC % 0, ESR 6, Sodium 137, Potassium 3.8, Chloride 106, Carbon Dioxide 27.0, Anion Gap 4 L, BUN 14, Creatinine 0.78, Estim Creat Clear Calc 91.90, Est GFR (MDRD) Af Amer 113, Est GFR (MDRD) Non-Af 93, BUN/Creatinine Ratio 18.0, Glucose 103, Lactic Acid 0.8, Calcium 8.5, Total Bilirubin 0.20, AST 13 L, ALT 29, Alkaline Phosphatase 46, Total Protein 7.3, Albumin 3.7, Globulin 3.6, Albumin/Globulin Ratio 1.0, Lipase 32, Serum , Qual NEGATIVE 02/21/23 14:20: Urine Color Yellow, Urine Clarity Sl. Cloudy, Urine pH 7.0, Ur Specific [place] 1.010, Urine Protein Negative, Urine Glucose (UA) Normal, Urine Ketones Negative, Urine Occult Blood Negative, Urine Nitrite Negative, Urine Bilirubin Negative, Urine Urobilinogen Normal, Ur Leukocyte Esterase Negative, Urine RBC 0 SEEN, Urine WBC 0 SEEN, Ur Squamous Epith Cells 5-10 SEEN, Amorphous Sediment 1+, Urine Bacteria 0 SEEN, Urine Mucus 0 SEEN Radiology Impression Abdomen/Pelvis CT 02/21/23 13:55 IMPRESSION: Dilated distal ileum with wall thickening of the terminal ileum and trace mesenteric edema, concerning for acute terminal ileitis with partial small bowel obstruction. Unremarkable appendix. 3.8 cm hemorrhagic right ovarian cyst. Electronically Signed: Noemi Luna MD at 15:26 EDT Reading Location ID and State: [facility] / [place] Tel , Service support , Assessment & Plan Assessment/Plan (1) Crohn's disease involving terminal ileum: (2) Partial small bowel obstruction: PLAN: Plan 28-year-old with Crohn disease presents with abdominal pain and bloating. CT scan is positive for partial small bowel obstruction. Recommend Solu-Medrol 40 mg IV every 6 hours, ciprofloxacin 500 mg every 12 hours, Flagyl 500 mg every 8 hours. Recommend ESR, CRP, Stelara levels and antibodys, MRI enterography, likely EGD and colonoscopy as the patient has not had one in 2 years. Charges/Coding Visit Charges Inpatient E&M: 64673 Init Hosp L3
[2023-02-21] MEDS: Ciprofloxacin 400 MG/200 ML BAG 200 MG IV ×2 (16:43→21:38)
[2023-02-21 17:55] LABS: CRP 3.78 mg/L (0.0-3.0)
[2023-02-21] MEDS: metroNIDAZOLE 500 MG/100 ML BAG 100 MG IV (18:12)
--- NOTE | 2023-02-21 18:29 | ED.RN ---
IV PATENT/ INFUSING. PT DENIES S/S OF INFILTRATION. SKIN P/W/D AT 1831.
[2023-02-21] MEDS: 0.9% Normal Saline 1,000 ML 125 ML IV (20:07)
[2023-02-21] MEDS: 0.9% Saline Lock 10 ML Syringe IV (20:08)
[2023-02-22] MEDS: Methylprednisolone Sod Succ 40 MG/ML VIAL IV ×5 (00:06→23:22)
[2023-02-22] MEDS: 0.9% Normal Saline 1,000 ML 125 ML IV (05:21)
[2023-02-22] MEDS: metroNIDAZOLE 500 MG/100 ML BAG 100 MG IV ×3 (05:21→21:12)
[2023-02-22 06:00] VITALS: PULSE 65; RESP 18; O2SAT 99
[2023-02-22 06:29] LABS: Absolute Lymphocyte Count 0.99 X10^3/uL (0.83-4.51); Absolute Neutrophil Count 11.6 X10^3/uL (2.0-7.7); Basophil# 0.02 X10^3/uL; Basophil% 0.2 % (0-1); Hematocrit 42.7 % (37-47); Hemoglobin 13.6 g/dL (12.0-15.0); Lymphocyte # 0.99 X10^3/ul (0.83-4.51); Lymphocyte % 7.7 % (19-41); Mean Corp Hgb Conc 31.9 g/dL (32-36); Mean Corpuscular Hgb 29.6 pg (27.0-32.0); Mean Corpuscular Volume 92.8 fL (81-99); Mean Platelet Vol. 9.9 fl (6.2-12.0); Monocyte# 0.22 X10^3/uL; Monocyte% 1.7 % (0-10); NRBC Flagged by Analyzer 0 % (0-5); Neutrophil % 89.9 % (47-70); Platelet Count 351 K/mm3 (150-450); RBC Distribution Width SD 44.1 fl (35.1-43.9); White Blood Count 12.9 K/mm3 (4.4-11.0)
[2023-02-22 06:52] LABS: Anion Gap 3 (5-15); BUN 9 mg/dL (7-18); Calcium,Total 8.9 mg/dL (8.5-10.1); Chloride 106 mmol/L (98-107); Creatinine, Serum 0.64 mg/dL (0.55-1.02); EST Glomerular Filtration Rate 116 mL/min (>60); Est Glom Filt Rate - Afr Amer 140 mL/min (>60); Glucose 134 mg/dL (74-106); Potassium 4.1 mmol/L (3.5-5.1); Sodium Level 136 mmol/L (136-145)
[2023-02-22 08:22] VITALS: BP 121/63; PULSE 71; RESP 18; TEMP 36.8; O2SAT 95
[2023-02-22] MEDS: oxyCODONE 5 MG Tablet PO (08:24)
--- NOTE | 2023-02-22 09:00 | MRI_ITS ---
MR Enterography Abdomen/Pelvis WO/W Contrast 02/22/2023 2:34 PM COMPARISON: CT 02/21/2023 CLINICAL HISTORY: crohns TECHNIQUE: Following oral administration of enteric contrast and administration of glucagon, multiplanar T1 and T2 weighted images along with dynamic post-gadolinium images were obtained through the abdomen and pelvis. FINDINGS: GI Tract: There is wall thickening and mucosal hyperenhancement of the terminal ileum with minimal surrounding inflammatory changes. There is also mild stricturing of the terminal ileum. No fistula, or obstruction. No drainable fluid collections. Liver: Unremarkable Gallbladder: Unremarkable Spleen: Unremarkable Pancreas: Unremarkable Adrenal Glands: Unremarkable Kidneys: Unremarkable Reproductive: Unremarkable Bladder: Unremarkable Lymphadenopathy: Absent Ascites: Absent Bones: No suspicious lesions MRI/Enterography Abd/Pel IMPRESSION: Findings consistent with acute flare of Crohn''s disease as evidenced by terminal ileitis and mild stricturing. No fistula, obstruction or drainable fluid collection. Electronically Signed: Charbel Mota MD at 23:31 EDT ,
[2023-02-22] MEDS: Ciprofloxacin 400 MG/200 ML BAG 200 MG IV ×2 (09:48→23:20)
--- NOTE | 2023-02-22 11:48 | PN_ITS ---
Subjective Subjective Patient seen and examined. She still complains of abdominal pain but states is gotten a bit better. She rates at 6 out of 10 today. Review of systems otherwise negative. Objective Data Objective Data Vital Signs: Vital Signs Temp Pulse Resp BP Pulse Ox O2 Del Method 98.2 F 71 18 121/63 H 95 Room Air 02/22/23 08:22 02/22/23 08:22 02/22/23 08:22 02/22/23 08:22 02/22/23 08:22 02/22/23 08:55 Oxygen Delivery Method Room Air Weight: 176 lb 12.972 oz Body Mass Index (BMI) 30.3 Intake & Output: Intake and Output for Last 24 Hours 02/20/23 02/21/23 02/22/23 23:59 23:59 23:59 Intake Total 1300 / 1300 2055.25 / 2055.25 Balance 1300 / 1300 2055.25 / 2055. Lab / Micro Data 02/22/23 06:12 02/22/23 06:12 Labs: Laboratory Results - last 24 hr 02/21/23 14:05: WBC 12.0 H, RBC 3.95 L, Hgb 11.8 L, Hct 36.1 L, MCV 91.4, MCH 29.9, MCHC 32.7, RDW Std Deviation 43.4, RDW Coeff of Candido 13.0, Plt Count 308, MPV 9.6, Immature Gran % (Auto) 0.200, Neut % (Auto) 66.4, Lymph % (Auto) 19.5, Beadle % (Auto) 8.8, Eos % (Auto) 4.8, Baso % (Auto) 0.3, Absolute Neuts (auto) 8.0 H, Absolute Lymphs (auto) 2.34, Nucleated RBC % 0, ESR 6, Sodium 137, Potassium 3.8, Chloride 106, Carbon Dioxide 27.0, Anion Gap 4 L, BUN 14, Crea tinine 0.78, Estim Creat Clear Calc 91.90, Est GFR (MDRD) Af Amer 113, Est GFR (MDRD) Non-Af 93, BUN/Creatinine Ratio 18.0, Glucose 103, Lactic Acid 0.8, Calcium 8.5, Total Bilirubin 0.20, AST 13 L, ALT 29, Alkaline Phosphatase 46, C- React Prot Ext Range 3.78 H, Total Protein 7.3, Albumin 3.7, Globulin 3.6, Albumin/Globulin Ratio 1.0, Lipase 32, Serum , Qual NEGATIVE 02/21/23 14:20: Urine Color Yellow, Urine Clarity Sl. Cloudy, Urine pH 7.0, Ur Specific [place] 1.010, Urine Protein Negative, Urine Glucose (UA) Normal, Urine Ketones Negative, Urine Occult Blood Negative, Urine Nitrite Negative, Urine Bilirubin Negative, Urine Urobilinogen Normal, Ur Leukocyte Esterase Negative, Urine RBC 0 SEEN, Urine WBC 0 SEEN, Ur Squamous Epith Cells 5-10 SEEN, Amorphous Sediment 1+, Urine Bacteria 0 SEEN, Urine Mucus 0 SEEN 02/22/23 06:12: WBC 12.9 H, RBC 4.60, Hgb 13.6, Hct 42.7, MCV 92.8, MCH 29.6, MCHC 31.9 L, RDW Std Deviation 44.1 H, RDW Coeff of Candido 13.0, Plt Count 351, MPV 9.9, Immature Gran % (Auto) 0.500, Neut % (Auto) 89.9 H, Lymph % (Auto) 7.7 L, Beadle % (Auto) 1.7, Eos % (Auto) 0.0, Baso % (Auto) 0.2, Absolute Neuts (auto) 11.6 H, Absolute Lymphs (auto) 0.99, Nucleated RBC % 0, Sodium 136, Potassium 4.1, Chloride 106, Carbon Dioxide 27.0, Anion Gap 3 L, BUN 9, Creatinine 0.64, Estim Creat Clear Calc 112.00, Est GFR (MDRD) Af Amer 140, Est GFR (MDRD) Non-Af 116, BUN/Creatinine Ratio 14.0, Glucose 134 H, Calcium 8.9 Radiography Diagnostic Testing: Radiology Impression Abdomen/Pelvis CT 02/21/23 13:55 IMPRESSION: Dilated distal ileum with wall thickening of the terminal ileum and trace mesenteric edema, concerning for acute terminal ileitis with partial small bowel obstruction. Unremarkable appendix. 3.8 cm hemorrhagic right ovarian cyst. Electronically Signed: Noemi Luna MD at 15:26 EDT , Physical Exam Const alert, oriented x3 and no apparent distress General Appearance: cooperative HEENT normocephalic, head/scalp atraumatic and moist oral mucous membranes Eyes PERRL and EOMs intact bilaterally Neck no lymphadenopathy and supple Lymph Lymphatic: no lymphadenopathy noted and no lymphedema noted Resp normal respiratory effort, normal air movement and clear to auscultation bilaterally Cardio regular rate, regular rhythm, S1 normal heart sound, S2 normal heart sound and no murmurs Palpation: normal PMI GI normal to inspection, nondistended, normoactive bowel sounds and soft to palpation GI Narrative: minimal generalised tenderness, no guarding or rebound tenderness. Extremity normal capillary refill, no clubbing, cyanosis or edema and no calf tenderness Skin General Skin Exam: no breakdown and turgor normal Neuro CN's II-XII intact bilaterally, no focal motor deficits, no sensory deficits noted and deep tendon reflexes 2+ bilaterally Coordination / Balance: [id number] test normal Psych thought process normal, cooperative and affect normal Appearance: appropriate Assessment & Plan Assessment/Plan (1) Partial small bowel obstruction: (2) Ileitis: (3) Crohn's disease involving terminal ileum: PLAN: Plan #Acute Crohn's flareup with terminal ileitis and partial small bowel obstruction * has been off her meds for ~ 3 months due to insurance lapse * CT abdomen and pelvis showed dilated distal ileum with wall thickeining of the terminal ileum and trace mesenteric edema, concerning for acute terminal ileitis with partial SBO * keep NPO * hydrate with IVF * on IV solumedrol 40mg q6hrly * on IV ciprofloxacin and metronidazole * per GI, start on IV solumedrol 40mg q6 * GI on board * Per GI ESR and CRP as well as Stelara levels and antibodies ordered. To have MRI enterography today and for likely EGD and colonoscopy as she has not had one in 2 years. * * #Depression: on trazodone and venlafaxine as well as buspirone DVT prophylaxis: lovenox Charges/Coding Visit Charges Inpatient E&M: 55971 Subs Hosp L2
--- NOTE | 2023-02-22 11:50 | CASEMGMT ---
RN?CM?RELAY REPAIRER?CM?to room to meet with patient for initial transition planning/care coordination?assessment.?RN?CM?introduced self and role at [facility].? Pt voices understanding and consents to?assessment?at this time.? Pt sitting up in chair in room in no distress at this time.? Pt is A/O at this time and answers all questions appropriately.?? Care providers, pharmacy, and demographics verified/updated at this time. PCP: Dr Dean Specialists: COLBY Pride--GI @ [facility]/[place] Preferred Pharmacy: [facility] Retail Insurance: [employer]. Prescription Benefit:?Yes. Pt states the Stelara was too expensive to take in the past, but that she was informed that her new insurance through [employer] would cover it @ 100%. She does not currently have a prescription for it, but had planned on calling Dr Dean's office to have a Rx sent to the pharmacy so she can pick it up. Living Will/HPOA:?Pt does not currently have LW/HCPOA and would like to complete. Latonia FRIED, made aware. Pt states she would like her daughter's grand-parents to be her HCPOA. LNOK: Sig other/boyfriend, Kennedy Smith. Pt states her mother is not living, her father lives in [place], and she has 2 brothers in [place]. Living Arrangements: Pt lives w/BF (Kennedy), pt's 9-yr-old dtr, and Kennedy's 3 children (ages 10, 8, and 6) in mobile home w/4-5 steps to enter. Pt is independent and works full-time @ [employer] Transportation:?Pt states drives self and states no transportation concerns at this time.?Kennedy also drives. DME: ? Denies using any DME and denies needs.? HHC/SNF: No hx of either. No needs identified. Pt wishes to return home and states has no concerns with going home at time of discharge.?CM?to follow for any further discharge planning/needs.? Pt voices no further concerns/needs at this time.? Advised pt to ask for?CM?if any further questions/concerns/needs arise.? Voices understanding. PLAN:??Home Follow for Rx benefits/coverage and graves check. DGiauque BSN?RN?CM
--- NOTE | 2023-02-22 12:14 | PN.GI_ITS ---
Subjective Subjective Patient says that her abdominal pain is about the same. She has not had a bowel movement and does complain of some mild bloating without chest pain or shortness of breath. Objective Data Objective Data Vital Signs: Vital Signs Temp Pulse Resp BP Pulse Ox O2 Del Method 98.2 F 71 18 121/63 H 95 Room Air 02/22/23 08:22 02/22/23 08:22 02/22/23 08:22 02/22/23 08:22 02/22/23 08:22 02/22/23 08:55 Oxygen Delivery Method Room Air Weight: 176 lb 12.972 oz Body Mass Index (BMI) 30.3 Intake & Output: Intake and Output for Last 24 Hours 02/20/23 02/21/23 02/22/23 23:59 23:59 23:59 Intake Total 1300 / 1300 2055.25 / 2055.25 Balance 1300 / 1300 2055.25 / 2055. Lab / Micro Data 02/22/23 06:12 02/22/23 06:12 Labs: Laboratory Results - last 24 hr 02/21/23 14:05: WBC 12.0 H, RBC 3.95 L, Hgb 11.8 L, Hct 36.1 L, MCV 91.4, MCH 29.9, MCHC 32.7, RDW Std Deviation 43.4, RDW Coeff of Candido 13.0, Plt Count 308, MPV 9.6, Immature Gran % (Auto) 0.200, Neut % (Auto) 66.4, Lymph % (Auto) 19.5, [place] % (Auto) 8.8, Eos % (Auto) 4.8, Baso % (Auto) 0.3, Absolute Neuts (auto) 8.0 H, Absolute Lymphs (auto) 2.34, Nucleated RBC % 0, ESR 6, Sodium 137, Potassium 3.8, Chloride 106, Carbon Dioxide 27.0, Anion Gap 4 L, BUN 14, Cre atinine 0.78, Estim Creat Clear Calc 91.90, Est GFR (MDRD) Af Amer 113, Est GFR (MDRD) Non-Af 93, BUN/Creatinine Ratio 18.0, Glucose 103, Lactic Acid 0.8, Calcium 8.5, Total Bilirubin 0.20, AST 13 L, ALT 29, Alkaline Phosphatase 46, C- React Prot Ext Range 3.78 H, Total Protein 7.3, Albumin 3.7, Globulin 3.6, Albumin/Globulin Ratio 1.0, Lipase 32, Serum , Qual NEGATIVE 02/21/23 14:20: Urine Color Yellow, Urine Clarity Sl. Cloudy, Urine pH 7.0, Ur Specific [place] 1.010, Urine Protein Negative, Urine Glucose (UA) Normal, Urine Ketones Negative, Urine Occult Blood Negative, Urine Nitrite Negative, Urine Bilirubin Negative, Urine Urobilinogen Normal, Ur Leukocyte Esterase Negative, Urine RBC 0 SEEN, Urine WBC 0 SEEN, Ur Squamous Epith Cells 5-10 SEEN, Amorphous Sediment 1+, Urine Bacteria 0 SEEN, Urine Mucus 0 SEEN 02/22/23 06:12: WBC 12.9 H, RBC 4.60, Hgb 13.6, Hct 42.7, MCV 92.8, MCH 29.6, MCHC 31.9 L, RDW Std Deviation 44.1 H, RDW Coeff of Candido 13.0, Plt Count 351, MPV 9.9, Immature Gran % (Auto) 0.500, Neut % (Auto) 89.9 H, Lymph % (Auto) 7.7 L, [place] % (Auto) 1.7, Eos % (Auto) 0.0, Baso % (Auto) 0.2, Absolute Neuts (auto) 11.6 H, Absolute Lymphs (auto) 0.99, Nucleated RBC % 0, Sodium 136, Potassium 4.1, Chloride 106, Carbon Dioxide 27.0, Anion Gap 3 L, BUN 9, Creatinine 0.64, Estim Creat Clear Calc 112.00, Est GFR (MDRD) Af Amer 140, Est GFR (MDRD) Non-Af 116, BUN/Creatinine Ratio 14.0, Glucose 134 H, Calcium 8.9 Radiography Diagnostic Testing: Radiology Impression Abdomen/Pelvis CT 02/21/23 13:55 IMPRESSION: Dilated distal ileum with wall thickening of the terminal ileum and trace mesenteric edema, concerning for acute terminal ileitis with partial small bowel obstruction. Unremarkable appendix. 3.8 cm hemorrhagic right ovarian cyst. Electronically Signed: Noemi Luna MD at 15:26 EDT , Physical Exam Const alert, oriented x3 and no apparent distress General Appearance: cooperative HEENT normocephalic, head/scalp atraumatic and moist oral mucous membranes Eyes PERRL and EOMs intact bilaterally Neck no lymphadenopathy and supple Lymph Lymphatic: no lymphadenopathy noted and no lymphedema noted Resp normal respiratory effort, normal air movement and clear to auscultation bilaterally Cardio regular rate, regular rhythm, S1 normal heart sound, S2 normal heart sound and no murmurs Palpation: normal PMI GI normal to inspection, nondistended, normoactive bowel sounds and soft to palpation GI Narrative: minimal generalised tenderness, no guarding or rebound tenderness. Extremity normal capillary refill, no clubbing, cyanosis or edema and no calf tenderness Skin General Skin Exam: no breakdown and turgor normal Neuro CN's II-XII intact bilaterally, no focal motor deficits, no sensory deficits noted and deep tendon reflexes 2+ bilaterally Coordination / Balance: [id number] test normal Psych thought process normal, cooperative and affect normal Appearance: appropriate Assessment & Plan Assessment/Plan (1) History of Crohn's disease: (2) Crohn's disease involving terminal ileum: (3) Partial small bowel obstruction: PLAN: Plan 28-year-old with history of ileocolonic Crohn's disease with appears to have a stricture of the ileum causing partial small bowel obstruction. She is on Solu- Medrol and IV antibiotics. She rates her pain at a 4 out of 10. Awaiting MR enterography. After she has the MRI enterography we will prep her for c olonoscopy and EGD tomorrow. Charges/Coding Visit Charges Inpatient E&M: 03860 [facility] Hosp L3
[2023-02-22] MEDS: Morphine 2 MG/ML Syringe IV (13:01)
--- NOTE | 2023-02-22 14:25 | NURSING ---
Patient left unit to MRI
[2023-02-22] MEDS: Glucagon 1 MG/ML Syringe IV (14:52)
[2023-02-22 15:55] VITALS: BP 127/66; PULSE 76; RESP 18; TEMP 37.2; O2SAT 97
[2023-02-22] MEDS: Bisacodyl 5 MG Tablet 20 MG PO (18:18)
[2023-02-22] MEDS: Polyethylene Glycol 3350 BOWEL PREP PO (19:53)
[2023-02-22] MEDS: Acetaminophen 325 MG Tablet 650 MG PO (21:15)
[2023-02-22 22:05] VITALS: BP 133/71; PULSE 55; RESP 16; TEMP 37.3; O2SAT 100
[2023-02-22] MEDS: 0.9% Saline Lock 10 ML Syringe IV (23:26)
[2023-02-23] VITALS (10 sets, daily range): BP systolic 111–128; BP diastolic 50–68; PULSE 51–74; RESP 16–18; TEMP 36.4–37.4; O2SAT 92–100
--- NOTE | 2023-02-23 | IMM_PTH ---
PATIENT: GARETH MCGILL LOC: MS3 U#:[id number] AGE/SX: 28/F ROOM: [facility] [place] RE02/21/[address]: Dr. Dorothy Hicks MD : 1995 BED: 1 DIS: 02/24/2023 SPEC #: [id number] RECD: 02/25/23 06:05 STATUS: SKY ROLDAN #: [id number] NAYELY: 02/23/23 00:[address]: Magnus Felder DEPT: IMMUNOHISTOCHEMISTRY RECD BY: Dinane Gloria ENTERED: 02/25/23 06:06 SP TYPE: IMMUNO OTHR DR: MD Dr. Cornelius Haddad MD Tissues: Gastric mucous membrane Procedures: H Pylori (initial) PHYSICIAN & INSTITUTION [place] [id number] SPECIMEN INFORMATION: Tissue Source: Antrum Clinical Info: Partial small bowel obstruction, Ileitis, Crohn's disease involving terminal ileum Specimen Number: [id number] CPT code: 01515 METHODOLOGY: Deparaffinized sections of prefer/formalin-fixed tissue or PAP/DQ stained slides are incubated with monoclonal/polyclonal antibodies/oligonucleotide probes. Localization is made via biotin free immunoperoxidase method. Appropriate controls are performed and reacted as expected. Results on target cell population are indicated in the following table: RESULTS: ANTIBODY / CLONE RESULT H Pylori (polyclonal) negative These tests were developed and their performance characteristics determined by [facility]. They may not have been cleared or approved by the U.S. Food and Drug Administration. The FDA has determined that such clearance or approval is not necessary. The above immunohistochemical/dualISH markers are ordered and reviewed by the Pathologist. INTERPRETATION: Antrum biopsy: Negative for Helicobacter pylori organisms. SJ:hussein 02/25/23
[2023-02-23] MEDS: Methylprednisolone Sod Succ 40 MG/ML VIAL IV ×3 (05:00→17:09)
[2023-02-23] MEDS: metroNIDAZOLE 500 MG/100 ML BAG 100 MG IV ×3 (05:00→22:18)
[2023-02-23] MEDS: Ondansetron 4 MG/2 ML Vial IV (05:17)
[2023-02-23 09:11] LABS: Absolute Lymphocyte Count 1.12 X10^3/uL (0.83-4.51); Absolute Neutrophil Count 13.6 X10^3/uL (2.0-7.7); Basophil# 0.01 X10^3/uL; Basophil% 0.1 % (0-1); Eosinophil# 0.01 X10^3/uL; Eosinophils% 0.1 % (0-5); Hematocrit 37.5 % (37-47); Hemoglobin 12.2 g/dL (12.0-15.0); Lymphocyte # 1.12 X10^3/ul (0.83-4.51); Lymphocyte % 7.2 % (19-41); Mean Corp Hgb Conc 32.5 g/dL (32-36); Mean Corpuscular Hgb 29.8 pg (27.0-32.0); Mean Corpuscular Volume 91.5 fL (81-99); Monocyte# 0.58 X10^3/uL; Monocyte% 3.8 % (0-10); NRBC Flagged by Analyzer 0 % (0-5); Neutrophil # 13.64 X10^3/uL (2.7-7.7); Neutrophil % 88.2 % (47-70); Platelet Count 334 K/mm3 (150-450); RBC Distribution Width CV 13.4 % (11.6-14.6); RBC Distribution Width SD 45.4 fl (35.1-43.9); White Blood Count 15.5 K/mm3 (4.4-11.0)
[2023-02-23 09:22] LABS: Anion Gap 6 (5-15); BUN 11 mg/dL (7-18); BUN/Creat Ratio 17.3 RATIO (10-20); Calcium,Total 8.8 mg/dL (8.5-10.1); Chloride 108 mmol/L (98-107); Creatinine, Serum 0.64 mg/dL (0.55-1.02); EST Glomerular Filtration Rate 117 mL/min (>60); Est Glom Filt Rate - Afr Amer 142 mL/min (>60); Glucose 138 mg/dL (74-106); Potassium 3.8 mmol/L (3.5-5.1); Sodium Level 140 mmol/L (136-145)
[2023-02-23] MEDS: Ciprofloxacin 400 MG/200 ML BAG 200 MG IV ×2 (09:22→23:41)
[2023-02-23] MEDS: 0.9% Saline Lock 10 ML Syringe IV ×2 (11:36→22:17)
[2023-02-23 12:08] LABS: Anti-Centromere B Ab <0.2 AI (0.0-0.9); Anti-Chromatin <0.2 AI (0.0-0.9); Anti-Jo <0.2 AI (0.0-0.9); Anti-Scleroderma-70 AB <0.2 AI (0.0-0.9); Anti-dsDNA Ab 1 IU/mL (0-9); RNP Ab <0.2 AI (0.0-0.9); SJOGREN'S Anti-SS-A test < 0.2 AI (0.0-0.9); SJOGREN'S Anti-SS-B test < 0.2 AI (0.0-0.9); Smith Ab <0.2 AI (0.0-0.9)
--- NOTE | 2023-02-23 12:11 | PN_ITS ---
Subjective Subjective Patient seen and examined. She states abdominal pain is getting better. She felt hungry. She is for EGD today. Review of systems otherwise negative. Objective Data Objective Data Vital Signs: Vital Signs Temp Pulse Resp BP Pulse Ox O2 Del Method 99.1 F 62 16 113/66 92 Room Air 02/23/23 09:11 02/23/23 09:11 02/23/23 09:11 02/23/23 09:11 02/23/23 10:06 02/23/23 10:06 Oxygen Delivery Method Room Air Weight: 176 lb 12.972 oz Body Mass Index (BMI) 30.3 Intake & Output: Intake and Output for Last 24 Hours 02/21/23 02/22/23 02/23/23 23:59 23:59 23:59 Intake Total 1300 / 1300 2700.00 / 2900.00 700 / 700 Balance 1300 / 1300 2700.00 / 2900.00 700 / 700 Lab / Micro Data 02/23/23 08:56 02/23/23 08:56 Labs: Laboratory Results - last 24 hr 02/22/23 06:12: SIERRA-1 Antibody <0.2, SS-A/Ro IgG Antibody < 0.2, SS-B/La IgG Antibody < 0.2, Sm (Lyon) Antibody <0.2, ELECTRIC SHAVER MECHANIC Antibody <0.2, Scl-70 Scleroderma Ab <0.2, Double Strand DNA Ab 1, Centromere B Antibody <0.2 02/23/23 08:56: WBC 15.5 H, RBC 4.10 L, Hgb 12.2, Hct 37.5, MCV 91.5, MCH 29.8, MCHC 32.5, RDW Std Deviation 45.4 H, RDW Coeff of Candido 13.4, Plt Count 334, MPV 10.0, Immature Gran % (Auto) 0.600, Neut % (Auto) 88.2 H, Lymph % (Auto) 7.2 L, [place] % (Auto) 3.8, Eos % (Auto) 0.1, Baso % (Auto) 0.1, Absolute Neuts (auto) 13.6 H, Absolute Lymphs (auto) 1.12, Nucleated RBC % 0, Sodium 140, Potassium 3.8, Chloride 108 H, Carbon Dioxide 26.0, Anion Gap 6, BUN 11, Creatinine 0.64, Estim Creat Clear Calc 112.00, Est GFR (MDRD) Af Amer 142, Est GFR (MDRD) Non-Af 117, BUN/Creatinine Ratio 17.3, Glucose 138 H, Calcium 8.8 Micro: Microbiology 02/23/23 02:10 Stool Stool Lactoferrin - Final Radiography Diagnostic Testing: Radiology Impression Enterography MRI 02/22/23 09:00 IMPRESSION: Findings consistent with acute flare of Crohn''s disease as evidenced by terminal ileitis and mild stricturing. No fistula, obstruction or drainable fluid collection. Electronically Signed: Charbel Mota MD at 23:31 EDT , Physical Exam Const alert, oriented x3 and no apparent distress General Appearance: cooperative HEENT normocephalic, head/scalp atraumatic and moist oral mucous membranes Eyes PERRL and EOMs intact bilaterally Neck no lymphadenopathy and supple Lymph Lymphatic: no lymphadenopathy noted and no lymphedema noted Resp normal respiratory effort, normal air movement and clear to auscultation bi laterally Cardio regular rate, regular rhythm, S1 normal heart sound, S2 normal heart sound and no murmurs Palpation: normal PMI GI normal to inspection, nondistended, normoactive bowel sounds, soft to palpation and non-tender Extremity normal capillary refill, no clubbing, cyanosis or edema and no calf tenderness Skin General Skin Exam: no breakdown and turgor normal Neuro CN's II-XII intact bilaterally, no focal motor deficits, no sensory deficits noted and deep tendon reflexes 2+ bilaterally Coordination / Balance: [id number] test normal Motor Exam: strength 5/5 throughout Psych thought process normal, cooperative and affect normal Appearance: appropriate Assessment & Plan Assessment/Plan (1) Partial small bowel obstruction: (2) Ileitis: (3) Crohn's disease involving terminal ileum: PLAN: Plan #Acute Crohn's flareup with terminal ileitis and partial small bowel obstruction * had been off her meds for ~ 3 months due to insurance lapse * CT abdomen and pelvis showed dilated distal ileum with wall thickeining of the terminal ileum and trace mesenteric edema, concerning for acute terminal ileitis with partial SBO * still NPO * abdominal pain has improved significantly * MRI enterography of the abdomen shows evidence of acute flare up of Crohn's disease with terminal ileitis and mild strictures but no fistula * hydrate with IVF * on IV solumedrol 40mg q6hrly * on IV ciprofloxacin and metronidazole * on IV solumedrol 40mg q6 * GI on board * ESR and CRP not elevated. * Stelara levels and antibodies pending. * for EGD and colonoscopy * * * #Depression: on trazodone and venlafaxine as well as buspirone DVT prophylaxis: lovenox Charges/Coding Visit Charges Inpatient E&M: 09248 Subs Hosp L2
--- NOTE | 2023-02-23 13:50 | CASEMGMT ---
Social work This foster care social worker presented to bedside to complete advanced directives documentation with patient as requested. Original document and copy provided to patient for her files. Copy of documents placed in chart to be part of patient's file. No additional needs or concerns at this time. Lucio Victoria, SYSTEMS SECURITY ANALYST, GRAIN OILSEED OR PASTURE FARM WORKER
[2023-02-23 14:09] LABS: Cytoplasmic Ab (C-ANCA) <1:20 titer (Neg:<1:20); Deamidated Gliadin IgA 3 units (0-19); Deamidated Gliadin IgG 3 units (0-19); Endomysial Antibody IgA Negative (Negative); Immunoglobulin A 175 mg/dL (87-352); Perinuclear Ab (P-ANCA) <1:20 titer (Neg:<1:20); t-Transglutaminase IgA <2 U/mL (0-3)
--- NOTE | 2023-02-23 15:15 | COLBX_PTH ---
PATIENT: GARETH MCGILL LOC: MS3 U#:[id number] AGE/SX: 28/F ROOM: [facility] RE02/21/[address]: Dr. Dorothy Hicks MD : 1995 BED: 1 DIS: 02/24/2023 SPEC #: [id number] RECD: 02/24/23 09:27 STATUS: SKY DUMONTServando #: [id number] NAYELY: 02/23/23 15:[address]: Dorothy Hicks DEPT: SURGICAL PATHOLOGY RECD BY: Nahomi Carpenter ENTERED: 02/24/23 09:28 SP TYPE: COLON BX OTHR DR: DO Dr. Cornelius Silva MD Tissues: A - Duodenum, NOS B - Gastric mucous membrane C - Ileum, NOS Procedures: Surgery Specimen Level IV HEADER OPERATION: Colonoscopy with biopsy and dilation, EGD with biopsies PRE-OP DIAGNOSIS: Partial small bowel obstruction, Ileitis, Crohn's disease involving terminal ileum TISSUE SUBMITTED: A. Duodenum, B. Antrum biopsy, C. Terminal ileum MICROSCOPIC DIAGNOSIS A. Duodenum, biopsy: Framents of duodenal mucosa, no pathologic diagnosis. B. Antrum biopsy: Mild gastritis. See microscopic description and comment. C. Terminal ileum, biopsy: Fragments of small intestinal mucosa with chronic active inflammation. See microscopic description and comment. SJ: 02/25/2023 COMMENT B. The results of immunohistochemistry for Helicobacter pylori will be reported separately ([id number]). Correlation with clinical, endoscopic findings and appropriate follow up are necessary. MICROSCOPIC DESCRIPTION Slides are reviewed. B. The specimen shows fragments of gastric mucosa with chronic inflammatory cell infiltrates in the lamina propria consisting of lymphocytes and plasma cells, consistent with mild chronic gastritis. C. The specimen shows fragments of small intestinal mucosa with glandular distortion, acute and chronic inflammatory cells infiltrate in the lamina propria. Cryptitis, crypt abscess or granuloma are not seen. No evidence of dysplasia. GROSS DESCRIPTION A. Received is one container labeled with the patient name and designated duodenum. The specimen consists of multiple irregular fragments of light gonzales soft tissue that in aggregate measure 0.7 x 0.5 x 0.1 cm. The specimen is totally submitted in one cassette. B. Received is one container labeled with the patient name and designated antrum. The specimen consists of two irregular fragments of light gonzales soft tissue that in aggregate measure 0.5 x 0.5 x 0.1 cm. The specimen is totally submitted in one cassette. / C. Received is one container labeled with the patient name and designated terminal ileum. The specimen consists of multiple irregular fragments of light gonzales soft tissue that in aggregate measure 1.0 x 0.5 x 0.1 cm. The specimen is totally submitted in one cassette. / AM:hussein 02/24/23 TC:2 CPT: [id number]
--- NOTE | 2023-02-23 16:08 | OP.EGD_ITS ---
Patient Name: Yimi Childress Procedure Date: 02/23/2023 3:17 PM Date of : 1995 Age: 28 Procedure: Upper GI endoscopy Indications: Generalized abdominal pain Providers: Magnus Felder DO Medicines: Monitored Anesthesia Care Patient Profile: This is a 28 year old female. Refer to note in patient chart for documentation of history and physical. Patient has symptoms of acute epigastric abdominal pain. Complications: No immediate complications. Procedure: Pre-Anesthesia Assessment: - Prior to the procedure, a History and Physical was performed, and patient medications and allergies were reviewed. The patient is competent. The risks and benefits of the procedure and the sedation options and risks were discussed with the patient. All questions were answered and informed consent was obtained. Patient identification and proposed procedure were verified by the physician in the pre-procedure area. Mental Status Examination: alert and oriented. Airway Examination: normal oropharyngeal airway and neck mobility. Respiratory Examination: clear to auscultation. CV Examination: normal. Prophylactic Antibiotics: The patient does not require prophylactic antibiotics. Prior Anticoagulants: The patient has taken no anticoagulant or antiplatelet agents. ASA Grade Assessment: II - A patient with mild systemic disease. After reviewing the risks and benefits, the patient was deemed in satisfactory condition to undergo the procedure. The anesthesia plan was to use monitored anesthesia care (MAC). Immediately prior to administration of medications, the patient was re-assessed for adequacy to receive sedatives. The heart rate, respiratory rate, oxygen saturations, blood pressure, adequacy of pulmonary ventilation, and response to care were monitored throughout the procedure. The physical status of the patient was re-assessed after the procedure. After obtaining informed consent, the endoscope was passed under direct vision. Throughout the procedure, the patient's blood pressure, pulse, and oxygen saturations were monitored continuously. The Colonoscope was introduced through the mouth, and advanced to the second part of duodenum. The upper GI endoscopy was accomplished without difficulty. The patient tolerated the procedure well. Scope In: 3:28:54 PM Scope Out: 3:32:16 PM Total Procedure Duration Time 0 hours 3 minutes 22 seconds Findings: The examined esophagus was normal. Patchy mildly erythematous mucosa without bleeding was found in the gastric antrum. Biopsies were taken with a cold forceps for Helicobacter pylori testing. Verification of patient identification for the specimen was done. Estimated blood loss was minimal. No gross lesions were noted in the second portion of the duodenum. Biopsies were taken with a cold forceps for histology. Verification of patient identification for the specimen was done. Estimated blood loss was minimal. Impression: - Normal esophagus. - Erythematous mucosa in the antrum. Biopsied. - No gross lesions in the second portion of the duodenum. Biopsied. Recommendation: - [facility]. - Resume regular diet. - Continue present medications. - Await pathology results. Procedure Code(s): --- Professional --- 29610, Esophagogastroduodenoscopy, flexible, transoral; with biopsy, single or multiple CPT copyright 2021 [employer]. All rights reserved. The codes documented in this report are preliminary and upon medical coder review may be revised to meet current compliance requirements. Magnus Felder DO 02/23/2023 4:08:13 PM This report has been signed electronically. Number of Addenda: 0 Note Initiated On: 02/23/2023 3:17 PM
--- NOTE | 2023-02-23 16:09 | OP.CCLET_ITS ---
02/23/2023 Cornelius Dean [address] [place] [address] Re : Upper GI endoscopy procedure for Yimi Childress Dear Dr. Dena This procedure was performed on Thursday, February 23, 2023. My impressions and recommendations are as follows: Impressions : - Normal esophagus. - Erythematous mucosa in the antrum. Biopsied. - No gross lesions in the second portion of the duodenum. Biopsied. Recommendations : - [facility]. - Resume regular diet. - Continue present medications. - Await pathology results. My findings are described in the full procedure note, which is enclosed. If I can be of further assistance, please feel free to contact me at . Sincerely, Magnus Felder, 02/23/2023 4:08:13 PM This report has been signed electronically.
--- NOTE | 2023-02-23 16:13 | OP.CCLET_ITS ---
02/23/2023 Cornelius Dean [address] [place] [address] Re : Colonoscopy procedure for Yimi Childress Dear Dr. Dean This procedure was performed on Thursday, February 23, 2023. My impressions and recommendations are as follows: Impressions : - The entire examined colon is normal. - Crohn's disease. Inflammation was found. This was moderate in severity. Biopsied. - Stricture in the terminal ileum. Dilated. Recommendations : - [facility]. - Resume regular diet. - Continue present medications. - Await pathology results. - Repeat colonoscopy in 1 year for surveillance. My findings are described in the full procedure note, which is enclosed. If I can be of further assistance, please feel free to contact me at . Sincerely, Magnus Felder, 02/23/2023 4:12:40 PM This report has been signed electronically.
--- NOTE | 2023-02-23 16:13 | OP.COLON_ITS ---
Patient Name: Yimi Childress Procedure Date: 02/23/2023 3:32 PM Date of : 1995 Age: 28 Procedure: Colonoscopy Indications: Abdominal pain in the right lower quadrant, Crohn's disease of the small bowel, Abnormal CT of the GI tract Providers: Magnus Felder DO Medicines: Monitored Anesthesia Care Patient Profile: This is a 28 year old female. Refer to note in patient chart for documentation of history and physical. Patient has symptoms of acute epigastric abdominal pain. Last Colonoscopy: within the past 3 years. Complications: No immediate complications. Procedure: Pre-Anesthesia Assessment: - Prior to the procedure, a History and Physical was performed, and patient medications and allergies were reviewed. The patient is competent. The risks and benefits of the procedure and the sedation options and risks were discussed with the patient. All questions were answered and informed consent was obtained. Patient identification and proposed procedure were verified by the physician in the pre-procedure area. Mental Status Examination: alert and oriented. Airway Examination: normal oropharyngeal airway and neck mobility. Respiratory Examination: clear to auscultation. CV Examination: normal. Prophylactic Antibiotics: The patient does not require prophylactic antibiotics. Prior Anticoagulants: The patient has taken no anticoagulant or antiplatelet agents. ASA Grade Assessment: II - A patient with mild systemic disease. After reviewing the risks and benefits, the patient was deemed in satisfactory condition to undergo the procedure. The anesthesia plan was to use monitored anesthesia care (MAC). Immediately prior to administration of medications, the patient was re-assessed for adequacy to receive sedatives. The heart rate, respiratory rate, oxygen saturations, blood pressure, adequacy of pulmonary ventilation, and response to care were monitored throughout the procedure. The physical status of the patient was re-assessed after the procedure. After I obtained informed consent, the scope was passed under direct vision. Throughout the procedure, the patient's blood pressure, pulse, and oxygen saturations were monitored continuously. The Colonoscope was introduced through the anus and advanced to the cecum, identified by appendiceal orifice and ileocecal valve. The colonoscopy was performed without difficulty. The patient tolerated the procedure well. The quality of the bowel preparation was adequate. The terminal ileum, ileocecal valve, appendiceal orifice, and rectum were photographed. Scope In: 3:36:11 PM Scope Withdrawal Time 0 hours 14 minutes 51 seconds Scope Out: 3:56:40 PM Total Procedure Duration Time 0 hours 20 minutes 29 seconds Findings: The perianal and digital rectal examinations were normal. The colon (entire examined portion) appeared normal. Localized inflammation characterized by erosions, erythema, friability, loss of vascularity, scarring and aphthous ulcerations was found in the distal ileum and in the terminal ileum. The inflammation was moderate in severity. Biopsies were taken with a cold forceps for histology. Verification of patient identification for the specimen was done. Estimated blood loss was minimal. The terminal ileum contained a benign-appearing, intrinsic severe stenosis measuring 5 cm (in length) that was traversed after dilation. A TTS dilator was passed through the scope. Dilation with an 18 mm colonic balloon dilator was performed under fluoroscopic guidance. The dilation site was examined and showed moderate improvement in luminal narrowing. Estimated blood loss was minimal. Impression: - The entire examined colon is normal. - Crohn's disease. Inflammation was found. This was moderate in severity. Biopsied. - Stricture in the terminal ileum. Dilated. Recommendation: - [facility]. - Resume regular diet. - Continue present medications. - Await pathology results. - Repeat colonoscopy in 1 year for surveillance. Procedure Code(s): --- Professional --- 94450, Colonoscopy, flexible; with transendoscopic balloon dilation 28555, Colonoscopy, flexible; with biopsy, single or multiple 53800, 26, Intraluminal dilation of strictures and/or obstructions (eg, esophagus), radiological supervision and interpretation CPT copyright 2021 [employer]. All rights reserved. The codes documented in this report are preliminary and upon manager telecom review may be revised to meet current compliance requirements. Magnus Felder DO 02/23/2023 4:12:40 PM This report has been signed electronically. Number of Addenda: 0 Note Initiated On: 02/23/2023 3:32 PM
[2023-02-24] MEDS: 0.9% Saline Lock 10 ML Syringe IV ×3 (00:58→12:57)
[2023-02-24] MEDS: Methylprednisolone Sod Succ 40 MG/ML VIAL IV ×3 (00:58→12:57)
[2023-02-24 04:00] VITALS: BP 104/55; PULSE 78; RESP 16; TEMP 36.6; O2SAT 96
[2023-02-24] MEDS: metroNIDAZOLE 500 MG/100 ML BAG 100 MG IV (06:46)
[2023-02-24 07:48] VITALS: PULSE 60
[2023-02-24 09:30] VITALS: O2SAT 96
[2023-02-24] MEDS: Ciprofloxacin 400 MG/200 ML BAG 200 MG IV (09:40)
[2023-02-24 09:43] VITALS: BP 132/67; PULSE 72; RESP 18; TEMP 36.9; O2SAT 97
--- NOTE | 2023-02-24 12:23 | DS.PCM_ITS ---
Providers Date of Admission: 02/21/23 Date of Discharge: 02/24/23 Primary Care Physician: Dr. Cornelius Dean MD Consultations 02/21/23 19:41 Consult: Gastroenterology Routine Consulting Provider: [facility] Reason for Consult: acute flare up of Crohn's diseas EMERGENT Consult: No MD Notified: Yes Date Notified: 02/21/23 Time Notified: 16:09 Method of Notification: Text Reason For Visit: ACUTE FLARE UP OF CROHN'S DISEASE Diagnosis Discharge Diagnosis (1) Partial small bowel obstruction: Status: Acute Code(s): K56.600 - Partial intestinal obstruction, unspecified as to cause (2) Ileitis: Status: Acute Code(s): K52.9 - Noninfective gastroenteritis and colitis, unspecified (3) Crohn's disease involving terminal ileum: Status: Acute Code(s): K50.00 - Crohn's disease of small intestine without complications Plan #Acute Crohn's flareup with terminal ileitis and partial small bowel obstruction * had been off her meds for ~ 3 months due to insurance lapse * CT abdomen and pelvis showed dilated distal ileum with wall thickeining of the terminal ileum and trace mesenteric edema, concerning for acute terminal ileitis with partial SBO * still NPO * abdominal pain has improved significantly * MRI enterography of the abdomen shows evidence of acute flare up of Crohn's disease with terminal ileitis and mild strictures but no fistula * hydrate with IVF * on IV solumedrol 40mg q6hrly * on IV ciprofloxacin and metronidazole * on IV solumedrol 40mg q6 * GI on board * ESR and CRP not elevated. * Stelara levels and antibodies pending. * for EGD and colonoscopy * * * #Depression: on trazodone and venlafaxine as well as buspirone DVT prophylaxis: lovenox Medications at Discharge Home Medications buspirone 10 mg tablet 10 mg PO TID 10/16/21 prednisone 20 mg tablet 20 mg PO DAILY #30 tabs 02/24/23 Hospital Course Operations None Procedures Colonoscopy Summary of Care Provided Minutes Spent on Discharge: 45 Hospital Course: GARETH MCGILL, is a 28 F with a PMH as outlined who presents via the ED on 02/21/2023 with a complaint of abdominal pain. Pain had been going on for about one week. SHe has a history of Crohn's disease, and says she was supposed to be on Stelara, but had defaulted for about 3 months due to lapse in insurance coverage. SHe had associated nausea and vomiting, and had been unable to keep her food down on day of admission. She had been getting episodic diarrhea but denied any blood in her stool. She denied any fever, and denied any urinary symptoms. Review of systems was otherwise negative. Vitals in the ED were BP of 123/65, SC of 84 and RR of 16 as well as temp of 97.9F. She was saturating at 100% on room air. CBC showed Hb of 11.8 and wbc of 12 and platelets of 308. Chemistry was unremarkable and urine test was negative. CT of the abdomen and pelvis showed dilated distal ileum with wall thickening of the terminal ileum and trace mesenteric edema, concerning for acute terminal ileitis with partial small bowel obstruction, unremarkable appendix and 3.8cm hemorrhagic right ovarian cyst. She was admitted to be managed for acute Crohn's flare up with terminal ileitis. She was started on IV solumedrol and kept NPO. Gastroenterology was consulted. her abdominal pain gradually improve. She had colonoscopy which showed normal colon and evidence of Crohn's disease with moderate inflammation and stricture in the terminal ileum which was dilated and biopsied. Her pain improved significantly and she was started on a diet, which she tolerated. She remained stable and was discharged home on 02/24/2023. She is to follow up with her PCP and commercial lines underwriter within one week, and is to resume her Stelara. Patient seen and examined. She had no complaints and felt much better. Review of systems is otherwise negative. Labs and vitals reviewed. Home meds reviewed and reconciled. Physical Exam Const alert, oriented x3 and no apparent distress General Appearance: cooperative, comfortable and well kempt HEENT normocephalic, head/scalp atraumatic, hearing grossly normal bilaterally and moist oral mucous membranes Mouth: oral and palatal mucosa normal Eyes PERRL and EOMs intact bilaterally Neck no lymphadenopathy and supple Lymph Lymphatic: no lymphadenopathy noted and no lymphedema noted Resp normal respiratory effort, normal air movement and clear to auscultation bilaterally Cardio regular rate, regular rhythm, S1 normal heart sound, S2 normal heart sound and no murmurs Palpation: normal PMI GI normal to inspection, nondistended, normoactive bowel sounds, soft to palpation and non-tender Extremity normal to inspection, full ROM, normal capillary refill, no clubbing, cyanosis or edema and no calf tenderness Skin no rashes or lesions noted General Skin Exam: no breakdown and turgor normal Neuro oriented x3, CN's II-XII intact bilaterally, moves all extremities, no focal motor deficits, no sensory deficits noted and deep tendon reflexes 2+ bilaterally Sensorium / Orientation: awake and alert Coordination / Balance: [id number] test normal Motor Exam: strength 5/5 throughout Psych thought process normal, cooperative and affect normal Appearance: appropriate Weight / BMI Weight Weight: 176 lb 12.972 oz Body Mass Index (BMI) 30.3 ABG / Lab / Microbiology Data 02/23/23 08:56 02/23/23 08:56 Laboratory: Laboratory Results - last 24 hr 02/22/23 06:12: IgA 175, c-ANCA Antibody <1:20, Atypical p-ANCA <1:20, p-ANCA Antibody <1:20, Endomysial IgA Ab Negative, Tiss Transglutamin IgG <2, Tiss Transglutamin IgA <2, Anti-Gliadin IgG Ab 3, Anti-Gliadin IgA Ab 3 Microbiology: Microbiology 02/23/23 02:10 Stool Stool Lactoferrin - Final D/C Instructions Discharge Activity: Return to Normal Activity Weight Bearing Status: Weight bearing as tolerated Call your doctor if you observe: Fever of 101 or Higher, Shortness of breath, Dizziness, Swelling in the ankles and Chest pain Meaningful Use Info Meaningful Use Diagnoses (Choose all that apply): None applicable Discharge Plan Admission Admit Date/Time: 02/21/23 16:06 Primary Reason for Your Visit: acute flare up of Crohn's Disease Attending Provider: Dorothy Hicks Primary Care Provider: Cornelius Dean Consulting Providers: Magnus Felder Instructions Forms: Work Excuse, Work / School Excuse Patient Instructions: ED Understanding Colitis, ED Crohn's Disease Discharge Orders/Prescriptions Prescriptions: New prednisone 20 mg tablet 20 mg PO DAILY Qty: 30 0RF Continued buspirone 10 mg tablet 10 mg PO TID Referrals / Follow Up: Cornelius Dean MD [Primary Care Provider] - Cornelius Dean MD [[facility]] - Disposition Disposition (needs filled in before D/C Order can be placed): Home, Self Care Charges/Coding Visit Charges Inpatient E&M: 93738 Disch Hosp >30min
--- NOTE | 2023-02-24 12:51 | CASEMGMT ---
LENARD POLLOCK NOTE: Pt being discharged. LENARD POLLOCK to room. Pt resting in bed. She denies having any discharge planning needs or concerns. Pt has been up ad carmen in room w/out difficulty. Nora ANGELON LENARD POLLOCK
--- NOTE | 2023-02-24 13:00 | PHA.DC.MR.R ---
Pharmacy [place] Med Reconciliation Pharmacy Service has performed discharge medication reconciliation for this patient. The patient's discharge medication list was reviewed for discrepancies and discrepancies were resolved. Medications at Discharge Home Medications buspirone 10 mg tablet 10 mg PO TID 10/16/21
[2023-02-24 21:07] LABS: Beef <0.10 kU/L (Class 0); Chocolate <0.10 kU/L (Class 0); Clam <0.10 kU/L (Class 0); Codfish 0.17 kU/L (Class 0/I); Corn 1.16 kU/L (Class II); Egg, White 0.38 kU/L (Class I); Egg, Whole 0.37 kU/L (Class I); Milk (Cow) <0.10 kU/L (Class 0); Peanut 0.18 kU/L (Class 0/I); Pork <0.10 kU/L (Class 0); SCALLOP <0.10 kU/L (Class 0); SESAME SEED 0.26 kU/L (Class 0/I); Shrimp <0.10 kU/L (Class 0); Soybean <0.10 kU/L (Class 0); Walnut, (Food) 0.55 kU/L (Class I); Wheat 0.76 kU/L (Class II)
[2023-02-25 20:08] LABS: Pancreatic Elastase, Fecal 266 (>200)
== END 2023-02-24 14:01 | disposition home or self-care (01) | DRG 387 ==
LOC: ED 16:23 → MS3 17:42
PROVIDERS: Internal Medicine Gastroenterology; Admitting Provider Student in an Organized Health Care Education/Training Program; Emergency Provider Emergency Medicine; PCP Internal Medicine; Visit Provider Student in an Organized Health Care Education/Training Program
PROC: 0DJD8ZZ Inspection of Lower Intestinal Tract, Via Natural or Artificial Opening Endoscopic (ICD-10-PCS; CPT 45378; principal; 2023-02-23 15:10)
DX: K50.012 Crohn's disease of small intestine with intestinal obstruction (principal); F17.210 Nicotine dependence, cigarettes, uncomplicated; F32.A Depression, unspecified; Z79.899 Other long term (current) drug therapy; T50.996A Underdosing of other drugs, medicaments and biological substances, initial encounter; Z91.120 Patient's intentional underdosing of medication regimen due to financial hardship
CPT/HCPCS: 36415; 74177; 74183; 80048; 80053; 81001; 82653; 82784; 83516; 83605; 83630; 83690; 84703; 85025; 85652; 86003; 86005; 86140; 86225; 86235; 86255; 86256; 87177; 87209; 88305; 88342; 96374; 99284; 99406; A9575; J7030; J7050; Q9967; A4216; J0744; J1610; J2405